=== PATIENT | female | born 1955 | race Caucasian/White ===

== ENCOUNTER → 2016-12-14 | Outpatient (CLI) | payer MEDICARE, OTHER ==
--- NOTE | 2016-12-15 11:54 | MM ---
Reason for exam: screening (asymptomatic). Last mammogram was performed 1 year and 1 month ago. Physical Findings: A clinical breast exam by your physician is recommended on an annual basis and results should be correlated with mammographic findings. MG Screening Mammo w CAD Bilateral CC and MLO view(s) were taken. Prior study comparison: November 18, 2015, bilateral MG screening mammo w CAD. June 05, 2014, bilateral MG screening mammo w CAD. The breast tissue is heterogeneously dense. This may lower the sensitivity of mammography. There is no discrete abnormality. No significant changes when compared with prior studies. ASSESSMENT: Negative, BI-RAD 1 RECOMMENDATION: Routine screening mammogram of both breasts in 1 year.
== END | disposition home or self-care (01) ==
LOC: RADMAMWWP 13:01
PROVIDERS: ATTEND Internal Medicine Geriatric Medicine
DX: Z12.31 Encounter for screening mammogram for malignant neoplasm of breast (principal); E55.9 Vitamin D deficiency, unspecified; E78.2 Mixed hyperlipidemia; F72 Severe intellectual disabilities; F41.1 Generalized anxiety disorder; K21.0 Gastro-esophageal reflux disease with esophagitis

== ENCOUNTER 2017-03-09 23:28 | Inpatient (IN) | payer MEDICARE, OTHER ==
[~2017-03-09 23:28] MED LIST: EPINEPHrine 10 ML SYRINGE (0.1 MG/ML) ONE; SODIUM BICARB 8.4% 50 ML VIAL (1 MEQ/ML) ONE
[2017-03-09] MEDS ORDERED: RX INFO: IV CONTRAST WAS GIVEN 1 EACH MISC MISCELLANE PRN (23:46)
[2017-03-09] MEDS ORDERED: SODIUM CHLORIDE 0.9% 500 ML IV STA (23:46)
[2017-03-10] MEDS ORDERED: ALBUTEROL NEBULIZED 2.5 MG/3 ML INHALATION STA (00:24)
[2017-03-10 00:51] LABS: Glucose,Whole Blood 277 mg/dL (75-99)
[2017-03-10] MEDS: PANTOPRAZOLE 40 MG/10 ML VIAL IVP STA ×2 (00:55→00:56)
[2017-03-10] MEDS ORDERED: PANTOPRAZOLE 40 MG/10 ML VIAL IVP STA (00:56)
[2017-03-10 01:17] LABS: Basophils % (A) 0 %; CH 29.1; Eosinophils # (A) 0.1 k/uL (0-0.7); Eosinophils % (A) 1 %; HCT 22.5 % (34.0-46.0); HDW 2.75; Luc # (Auto) 0.16; Luc % (Auto) 1; Lymphocytes % (A) 9 %; MCH 30.6 pg (25.0-35.0); MCHC 35.5 g/dL (31.0-37.0); Mean Platelet Volume 8.9; Monocytes # (A) 0.9 k/uL (0-1.0); Monocytes % (A) 7 %; Neutrophils # (A) 9.5 k/uL (1.3-7.7); Neutrophils % (A) 82 %; RBC 2.61 m/uL (3.80-5.40); RDW 14.1 % (11.5-15.5); WBC 11.6 k/uL (3.8-10.6); WBC (Perox) 11.05
--- NOTE | 2017-03-10 01:22 | ED ---
Nausea/Vomiting/Diarrhea HPI - General Chief complaint: Nausea/Vomiting/Diarrhea Stated complaint: NVD Time Seen by Provider: 03/09/17 23:48 Source: patient Mode of arrival: ambulatory Limitations: altered mental status (Patient is nonverbal) - History of Present Illness Initial comments: This patient is a 61-year-old woman brought from the [facility] home to be evaluated for vomiting and diarrhea. The patient is nonverbal and is not able to give any history, the caregiver states that she has been vomiting since the morning and also had a number of episodes of diarrhea. There has been some coffee- ground emesis. MD complaint: vomiting, diarrhea Onset/Timin -: days(s) Description of Vomiting: coffee grounds - Related Data Home Medications Medication Instructions Recorded Confirmed Docusate [Colace] 100 mg PO BID@0700,199904/10/14 03/10/17 Omeprazole [PriLOSEC] 20 mg PO QAM 04/10/14 03/10/17 QUEtiapine [SEROquel] 150 mg PO BID@1200,199904/10/14 03/10/17 clonazePAM [KlonoPIN] 1 mg PO TID@0700,1200,199904/10/14 03/10/17 Atorvastatin [Lipitor] 20 mg PO HS 03/09/17 03/10/17 Cholecalciferol (Vitamin D3) 2,000 unit PO QAM 03/09/17 03/10/17 [Vitamin D3] DULoxetine HCL [Cymbalta] 60 mg PO QAM 03/09/17 03/10/17 Loratadine [Claritin] 10 mg PO QAM 03/09/17 03/10/17 QUEtiapine [SEROquel] 50 mg PO QAM@0700 03/09/17 03/10/17 Allergies Allergy/AdvReac Type Severity Reaction Status Date / Time No Known Allergies Allergy Verified 03/09/17 23:40 Review of Systems ROS Statement: Those systems with pertinent positive or pertinent negative responses have been documented in the HPI. ROS Other: All systems not noted in ROS Statement are negative. Limitations: ROS unobtainable due to patients medical condition Gastrointestinal: Reports: vomiting, diarrhea, hematemesis Past Medical History Past Medical History: GERD/Reflux, Hyperlipidemia, Pneumonia Additional Past Medical History / Comment(s): degenerative disc, anemia, developmental disability OCC INCONT OF URINE AT NIGHT TIME, HIATAL HERNIA, CONSTIPATION History of Any Multi-Drug Resistant Organisms: None Reported Past Surgical History: Cholecystectomy Past Anesthesia/Blood Transfusion Reactions: No Reported Reaction Past Psychological History: No Psychological Hx Reported Smoking Status: Never smoker Past Alcohol Use History: None Reported Past Drug Use History: None Reported - Past Family History Father Family Medical History: Unable to Obtain Mother Family Medical History: Unable to Obtain General Exam Limitations: no limitations, language barrier General appearance: alert Head exam: Present: atraumatic, normocephalic Eye exam: Present: other (Conjunctival pallor) ENT exam: Present: mucous membranes moist Neck exam: Present: normal inspection, full ROM Respiratory exam: Present: rhonchi. Absent: respiratory distress, wheezes, rales, stridor, accessory muscle use, decreased breath sounds Cardiovascular Exam: Present: normal rhythm, tachycardia, systolic murmur ( Grade 1/6 systolic ejection murmur). Absent: diastolic murmur, rubs, gallop GI/Abdominal exam: Present: soft, normal bowel sounds. Absent: distended, tenderness, guarding, rebound, mass Rectal exam: Present: normal rectal tone, other (There is dark stool). Absent: bloody stool, fecal impaction, hemorrhoids, mass, tenderness Extremities exam: Present: normal inspection, normal capillary refill. Absent: pedal edema, calf tenderness Back exam: Absent: CVA tenderness (R), CVA tenderness (L) Neurological exam: Present: alert Skin exam: Present: warm, dry, intact, pallor. Absent: cyanosis, diaphoretic, erythema, petechiae, mottled Course Vital Signs 03/09/17 03/10/17 03/10/17 23:34 00:16 00:36 Temperature 97.4 F L Pulse Rate 125 H 122 H 120 H Respiratory 18 20 20 Rate Blood Pressure 93/50 123/61 120/68 O2 Sat by Pulse 94 L 95 94 L Oximetry 03/10/17 03/10/17 03/10/17 00:50 00:56 01:27 Temperature Pulse Rate 120 H 118 H Respiratory Rate Blood Pressure O2 Sat by Pulse 82 L Oximetry 03/10/17 03/10/17 03/10/17 01:40 01:41 01:50 Temperature Pulse Rate Respiratory Rate Blood Pressure O2 Sat by Pulse 85 L 87 L 90 L Oximetry 03/10/17 03/10/17 03/10/17 02:17 03:52 06:14 Temperature 98.4 F 99.4 F Pulse Rate 115 H 122 H 84 Respiratory 20 18 18 Rate Blood Pressure 107/64 98/52 84/47 O2 Sat by Pulse 91 L 85 L Oximetry 03/10/17 03/10/17 03/10/17 06:26 06:29 06:32 Temperature Pulse Rate 94 92 85 Respiratory 18 18 Rate Blood Pressure 81/43 62/38 49/30 O2 Sat by Pulse 74 L Oximetry 03/10/17 03/10/17 03/10/17 06:39 06:44 06:47 Temperature Pulse Rate 90 96 94 Respiratory 18 18 18 Rate Blood Pressure 59/29 51/33 51/33 O2 Sat by Pulse 93 L 96 Oximetry 03/10/17 03/10/17 03/10/17 06:50 06:53 06:56 Temperature Pulse Rate 92 92 94 Respiratory 18 18 18 Rate Blood Pressure 51/29 52/30 57/28 O2 Sat by Pulse 97 98 97 Oximetry 03/10/17 03/10/17 03/10/17 06:59 07:02 07:07 Temperature Pulse Rate 96 96 97 Respiratory 18 18 18 Rate Blood Pressure 55/29 57/30 56/30 O2 Sat by Pulse 97 97 Oximetry 03/10/17 07:08 Temperature Pulse Rate 97 Respiratory 18 Rate Blood Pressure 56/30 O2 Sat by Pulse 96 Oximetry Procedures - Central Line Placement Left Femoral Consent Obtained: verbal consent (From brother), emergent situation Time Out Performed: Yes Patient Placed on Monitor/Pulse Ox: Yes MD Prep: mask, gown, gloves Central Line Prep: Chlorhexidine scrub Local Anesthesia Used: Lidocaine 1% Central Line Lumen Inserted: triple Central Line Position: good blood return, all ports aspirated, flushed, capped, sutured in place with 3-0 nylon Dressing Applied: Tegaderm Patient Tolerated Procedure: no complications - Intubation Time Out Performed: Yes Sedative: Etomidate Laryngoscope: David Size: 3 Assist Device Used: fiber optic device ET Tube Size: 7.5 ET Tube Uncuffed: No Tube Placement Confirmation: visualized tube passing through cords, equal breath sounds bilaterally, no breath sounds over epigastrium, confirmation by capnometry Patient Tolerated Procedure: no complications Medical Decision Making - Medical Decision Making Patient is a 61-year-old woman presenting from [facility] home with GI bleeding. Initial workup reveals anemia and presence of layering blood in the stomach on the computed tomography scan. There is also evidence of aspiration pneumonitis on the initial computed tomography scan. I discussed the case with the patient's brother who makes her medical decisions for her and discussed options including full code versus comfort care. Patient' s brother states that he would like her to be full code. Case discussed with the lead database administrator, Dr. Glod, to inform him of this critically ill patient and In light of this, patient will be having central line placed as she has poor peripheral access, and intubation given that she already has had some aspiration and also that her pulse oximetry has been occasionally dropping to the 80s. Patient in room 20 and intubated. During intubation the patient did have further vomiting of gastric contents. Intubation accomplished under Glidescope. Central line is in place. I did attempt the right IJ approach, but was not able to pass the wire after the vein was cannulated. As this route was not successful, rather than performing multiple attempts to her switch to the left femoral. Was able to place the central line and started fluid bolus. Following placement of the central line, patient hypotensive and becoming bradycardic. ACLS protocol started. Patient received epinephrine and CPR. The patient did have ROSC. The repeat labs drawn during placement of the central line do show that her hemoglobin has further decreased to 2.5 and she has number of electrolyte abnormalities. Patient blood transfusion given. The case is also discussed with Dr. Marie who is the surgeon on-call, as well as Dr. Lauren, the retoucher photoengraving on-call. Case discussed with the admitting physician Dr. Braxton. Patient's brother updated by myself over the phone regarding her critical condition and the extremely guarded prognosis. - Lab Data Result diagrams: 03/10/17 05:40 03/10/17 05:40 Lab Results 03/09/17 03/10/17 03/10/17 Range/Units 00:58 00:48 00:58 WBC 11.6 H (3.8-10.6) k/uL RBC 2.61 L (3.80-5.40) m/uL Hgb 8.0 L (11.4-16.0) gm/dL Hct 22.5 L (34.0-46.0) % MCV 86.0 (80.0-100.0) fL MCH 30.6 (25.0-35.0) pg MCHC 35.5 (31.0-37.0) g/dL RDW 14.1 (11.5-15.5) % Plt Count 199 (150-450) k/uL Neutrophils % 82 % Neutrophils % (Manual) % Band Neutrophils % % Lymphocytes % 9 % Lymphocytes % (Manual) % Monocytes % 7 % Monocytes % (Manual) % Eosinophils % 1 % Eosinophils % (Manual) % Basophils % 0 % Metamyelocytes % % Myelocytes % % Neutrophils # 9.5 H (1.3-7.7) k/uL Neutrophils # (Manual) (1.3-7.7) k/uL Lymphocytes # 1.0 (1.0-4.8) k/uL Lymphocytes # (Manual) (1.0-4.8) k/uL Monocytes # 0.9 (0-1.0) k/uL Monocytes # (Manual) (0-1.0) k/uL Eosinophils # 0.1 (0-0.7) k/uL Eosinophils # (Manual) (0-0.7) k/uL Basophils # 0.0 (0-0.2) k/uL Nucleated RBCs (0-0) /100 WBC Manual Slide Review Toxic Granulation Hypochromasia Poikilocytosis (manual PT (9.0-12.0) sec INR (<1.1) APTT (22.0-30.0) sec Sample Site ABG pH (7.35-7.45) ABG pCO2 (35-45) mmHg ABG pO2 (83-108) mmHg ABG HCO3 (21-25) mmol/L ABG Total CO2 (19-24) mmol/L ABG O2 Saturation (94-97) % ABG Base Excess mmol/L FiO2 % Sodium (137-145) mmol/L Potassium (3.5-5.1) mmol/L Chloride (98-107) mmol/L Carbon Dioxide (22-30) mmol/L Anion Gap mmol/L BUN (7-17) mg/dL Creatinine (0.52-1.04) mg/dL Est GFR (MDRD) Af Amer (>60 ml/min/1.73 sqM) Est GFR (MDRD) Non-Af (>60 ml/min/1.73 sqM) Glucose (74-99) mg/dL POC Glucose (mg/dL) 277 H (75-99) mg/dL POC Glu Asian Studies Professor ID Poornima Martin Plasma Lactic Acid Jase (0.7-2.0) mmol/L Calcium (8.4-10.2) mg/dL Magnesium (1.6-2.3) mg/dL Total Bilirubin (0.2-1.3) mg/dL AST (14-36) U/L ALT (9-52) U/L Alkaline Phosphatase (38-126) U/L Total Creatine Kinase (30-135) U/L CK-MB (CK-2) (0.0-2.4) ng/mL CK-MB (CK-2) Rel Index Troponin I (0.000-0.034) ng/mL Total Protein (6.3-8.2) g/dL Albumin (3.5-5.0) g/dL Stool Occult Blood (Negative) Blood Type O Positive Blood Type Recheck No Antibody Screen NEGATIVE Crossmatch See Detail Spec Expiration Date 03/12/2017 - 235703/10/17 03/10/17 03/10/17 Range/Units 00:58 00:58 00:58 WBC (3.8-10.6) k/uL RBC (3.80-5.40) m/uL Hgb (11.4-16.0) gm/dL Hct (34.0-46.0) % MCV (80.0-100.0) fL MCH (25.0-35.0) pg MCHC (31.0-37.0) g/dL RDW (11.5-15.5) % Plt Count (150-450) k/uL Neutrophils % % Neutrophils % (Manual) % Band Neutrophils % % Lymphocytes % % Lymphocytes % (Manual) % Monocytes % % Monocytes % (Manual) % Eosinophils % % Eosinophils % (Manual) % Basophils % % Metamyelocytes % % Myelocytes % % Neutrophils # (1.3-7.7) k/uL Neutrophils # (Manual) (1.3-7.7) k/uL Lymphocytes # (1.0-4.8) k/uL Lymphocytes # (Manual) (1.0-4.8) k/uL Monocytes # (0-1.0) k/uL Monocytes # (Manual) (0-1.0) k/uL Eosinophils # (0-0.7) k/uL Eosinophils # (Manual) (0-0.7) k/uL Basophils # (0-0.2) k/uL Nucleated RBCs (0-0) /100 WBC Manual Slide Review Toxic Granulation Hypochromasia Poikilocytosis (manual PT (9.0-12.0) sec INR (<1.1) APTT (22.0-30.0) sec Sample Site ABG pH (7.35-7.45) ABG pCO2 (35-45) mmHg ABG pO2 (83-108) mmHg ABG HCO3 (21-25) mmol/L ABG Total CO2 (19-24) mmol/L ABG O2 Saturation (94-97) % ABG Base Excess mmol/L FiO2 % Sodium 128 L (137-145) mmol/L Potassium 3.2 L (3.5-5.1) mmol/L Chloride 98 (98-107) mmol/L Carbon Dioxide 16 L (22-30) mmol/L Anion Gap 14 mmol/L BUN 76 H (7-17) mg/dL Creatinine 0.97 (0.52-1.04) mg/dL Est GFR (MDRD) Af Amer >60 (>60 ml/min/1.73 sqM) Est GFR (MDRD) Non-Af 58 (>60 ml/min/1.73 sqM) Glucose 237 H (74-99) mg/dL POC Glucose (mg/dL) (75-99) mg/dL POC Glu Asian Studies Professor ID Plasma Lactic Acid Jase 2.7 H* (0.7-2.0) mmol/L Calcium 7.4 L (8.4-10.2) mg/dL Magnesium 1.5 L (1.6-2.3) mg/dL Total Bilirubin 0.4 (0.2-1.3) mg/dL AST 27 (14-36) U/L ALT 16 (9-52) U/L Alkaline Phosphatase 49 (38-126) U/L Total Creatine Kinase 180 H (30-135) U/L CK-MB (CK-2) 2.4 (0.0-2.4) ng/mL CK-MB (CK-2) Rel Index 1.3 Troponin I <0.012 (0.000-0.034) ng/mL Total Protein 5.4 L (6.3-8.2) g/dL Albumin 2.8 L (3.5-5.0) g/dL Stool Occult Blood (Negative) Blood Type Blood Type Recheck Antibody Screen Crossmatch Spec Expiration Date 03/10/17 03/10/17 03/10/17 Range/Units 01:20 05:40 05:40 WBC 3.0 L (3.8-10.6) k/uL RBC 0.86 L (3.80-5.40) m/uL Hgb 2.5 L* D (11.4-16.0) gm/dL Hct 8.4 L* (34.0-46.0) % MCV 98.0 D (80.0-100.0) fL MCH 29.4 (25.0-35.0) pg MCHC 30.0 L (31.0-37.0) g/dL RDW 14.1 (11.5-15.5) % Plt Count 121 L (150-450) k/uL Neutrophils % % Neutrophils % (Manual) 15.5 % Band Neutrophils % 16.5 % Lymphocytes % % Lymphocytes % (Manual) 42.5 % Monocytes % % Monocytes % (Manual) 6.0 % Eosinophils % % Eosinophils % (Manual) 0.5 % Basophils % % Metamyelocytes % 10.5 % Myelocytes % 8.5 % Neutrophils # (1.3-7.7) k/uL Neutrophils # (Manual) 1.0 L (1.3-7.7) k/uL Lymphocytes # (1.0-4.8) k/uL Lymphocytes # (Manual) 1.3 (1.0-4.8) k/uL Monocytes # (0-1.0) k/uL Monocytes # (Manual) 0.2 (0-1.0) k/uL Eosinophils # (0-0.7) k/uL Eosinophils # (Manual) 0.0 (0-0.7) k/uL Basophils # (0-0.2) k/uL Nucleated RBCs 0 (0-0) /100 WBC Manual Slide Review Performed Toxic Granulation Present Hypochromasia Marked Poikilocytosis (manual Present PT 16.3 H (9.0-12.0) sec INR 1.7 (<1.1) APTT >200.0 H* (22.0-30.0) sec Sample Site ABG pH (7.35-7.45) ABG pCO2 (35-45) mmHg ABG pO2 (83-108) mmHg ABG HCO3 (21-25) mmol/L ABG Total CO2 (19-24) mmol/L ABG O2 Saturation (94-97) % ABG Base Excess mmol/L FiO2 % Sodium (137-145) mmol/L Potassium (3.5-5.1) mmol/L Chloride (98-107) mmol/L Carbon Dioxide (22-30) mmol/L Anion Gap mmol/L BUN (7-17) mg/dL Creatinine (0.52-1.04) mg/dL Est GFR (MDRD) Af Amer (>60 ml/min/1.73 sqM) Est GFR (MDRD) Non-Af (>60 ml/min/1.73 sqM) Glucose (74-99) mg/dL POC Glucose (mg/dL) (75-99) mg/dL POC Glu Asian Studies Professor ID Plasma Lactic Acid Jase (0.7-2.0) mmol/L Calcium (8.4-10.2) mg/dL Magnesium (1.6-2.3) mg/dL Total Bilirubin (0.2-1.3) mg/dL AST (14-36) U/L ALT (9-52) U/L Alkaline Phosphatase (38-126) U/L Total Creatine Kinase (30-135) U/L CK-MB (CK-2) (0.0-2.4) ng/mL CK-MB (CK-2) Rel Index Troponin I (0.000-0.034) ng/mL Total Protein (6.3-8.2) g/dL Albumin (3.5-5.0) g/dL Stool Occult Blood Positive H (Negative) Blood Type Blood Type Recheck Antibody Screen Crossmatch Spec Expiration Date 03/10/17 03/10/17 03/10/17 Range/Units 05:40 05:40 06:21 WBC (3.8-10.6) k/uL RBC (3.80-5.40) m/uL Hgb (11.4-16.0) gm/dL Hct (34.0-46.0) % MCV (80.0-100.0) fL MCH (25.0-35.0) pg MCHC (31.0-37.0) g/dL RDW (11.5-15.5) % Plt Count (150-450) k/uL Neutrophils % % Neutrophils % (Manual) % Band Neutrophils % % Lymphocytes % % Lymphocytes % (Manual) % Monocytes % % Monocytes % (Manual) % Eosinophils % % Eosinophils % (Manual) % Basophils % % Metamyelocytes % % Myelocytes % % Neutrophils # (1.3-7.7) k/uL Neutrophils # (Manual) (1.3-7.7) k/uL Lymphocytes # (1.0-4.8) k/uL Lymphocytes # (Manual) (1.0-4.8) k/uL Monocytes # (0-1.0) k/uL Monocytes # (Manual) (0-1.0) k/uL Eosinophils # (0-0.7) k/uL Eosinophils # (Manual) (0-0.7) k/uL Basophils # (0-0.2) k/uL Nucleated RBCs (0-0) /100 WBC Manual Slide Review Toxic Granulation Hypochromasia Poikilocytosis (manual PT (9.0-12.0) sec INR (<1.1) APTT (22.0-30.0) sec Sample Site RRA ABG pH <7.00 L* (7.35-7.45) ABG pCO2 78 H* (35-45) mmHg ABG pO2 79 L (83-108) mmHg ABG HCO3 9 L* (21-25) mmol/L ABG Total CO2 12 L (19-24) mmol/L ABG O2 Saturation 73.1 L (94-97) % ABG Base Excess -23.4 mmol/L FiO2 100 % Sodium 133 L (137-145) mmol/L Potassium 2.4 L* (3.5-5.1) mmol/L Chloride 112 H (98-107) mmol/L Carbon Dioxide 8 L* (22-30) mmol/L Anion Gap 13 mmol/L BUN 50 H (7-17) mg/dL Creatinine 0.87 (0.52-1.04) mg/dL Est GFR (MDRD) Af Amer >60 (>60 ml/min/1.73 sqM) Est GFR (MDRD) Non-Af >60 (>60 ml/min/1.73 sqM) Glucose 314 H (74-99) mg/dL POC Glucose (mg/dL) (75-99) mg/dL POC Glu Asian Studies Professor ID Plasma Lactic Acid Jase 8.1 H* (0.7-2.0) mmol/L Calcium 4.5 L* (8.4-10.2) mg/dL Magnesium (1.6-2.3) mg/dL Total Bilirubin 0.1 L (0.2-1.3) mg/dL AST 16 (14-36) U/L ALT 10 (9-52) U/L Alkaline Phosphatase 24 L (38-126) U/L Total Creatine Kinase (30-135) U/L CK-MB (CK-2) (0.0-2.4) ng/mL CK-MB (CK-2) Rel Index Troponin I (0.000-0.034) ng/mL Total Protein 2.1 L (6.3-8.2) g/dL Albumin <1.0 L (3.5-5.0) g/dL Stool Occult Blood (Negative) Blood Type Blood Type Recheck Antibody Screen Crossmatch Spec Expiration Date - EKG Data -: EKG Interpreted by Ia EKG shows normal: sinus rhythm, intervals (HI and QT intervals normal, the QRS duration is 122 ms which is consistent with the right bundle-branch block.), QRS complexes (Right bundle-branch block), ST-T waves (T wave abnormalities suggestive of inferolateral ischemia.) Rate: tachycardia (Rate approximately 122 bpm) Critical Care Time Critical Care Time: Yes (90) Critical Care Time: Critical care time involved in the initial history and physical, order manager, study interpretation, multiple discussions of the patient's condition, including with her caregiver, her brother, the lead database administrator twice, the surgeon twice, the retoucher photoengraving, the admitting physician. Also time involved in ACLS protocol. time does not include the procedures performed. Disposition Clinical Impression: GI bleed, Anemia, Lactic acidosis Disposition: ADMITTED IP TO THIS [facility] Condition: Critical
[2017-03-10] MEDS ORDERED: INSULIN REGULAR 100 UNIT/ML VIAL SQ STA (01:23)
[2017-03-10] MEDS ORDERED: LEVOFLOXACIN 750MG-D5W PMX 750 MG in DEXTROSE/WATER 1 150ML.BAG IVPB STA (01:49)
[2017-03-10 01:51] LABS: ALT 16 U/L (9-52); AST 27 U/L (14-36); Alkaline Phosphatase 49 U/L (38-126); Anion Gap 14 mmol/L; Blood Urea Nitrogen 76 mg/dL (7-17); Calcium 7.4 mg/dL (8.4-10.2); Carbon Dioxide 16 mmol/L (22-30); Chloride 98 mmol/L (98-107); Creatine Kinase 180 U/L (30-135); Glucose 237 mg/dL (74-99); Magnesium 1.5 mg/dL (1.6-2.3); Non-African American GFR(MDRD) 58 (>60 ml/min/1.73 sqM); Potassium 3.2 mmol/L (3.5-5.1); Sodium 128 mmol/L (137-145); Total Bilirubin 0.4 mg/dL (0.2-1.3); Total Protein 5.4 g/dL (6.3-8.2)
[2017-03-10 02:02] LABS: Creatine Kinase MB 2.4 ng/mL (0.0-2.4); Troponin I <0.012 ng/mL (0.000-0.034)
--- NOTE | 2017-03-10 02:54 | CT ---
EXAM: CT Abdomen and Pelvis With Intravenous Contrast CLINICAL HISTORY: GI bleed, abd pain, hx of hiatal hernia, cholecystectomy hysterectomy, [id number]/100ml iv only given and 0ml wasted, TECHNIQUE: Axial computed tomography images of the abdomen and pelvis with intravenous contrast. CTDI is 13.90 mGy and DLP is 1034.1 mGy-cm. This CT exam was performed using one or more of the following dose reduction techniques: automated exposure control, adjustment of the mA and/or kV according to patient size, and/or use of iterative reconstruction technique. Coronal and sagittal reformatted images were created and reviewed. COMPARISON: CT abdomen and pelvis 05/27/11 FINDINGS: Lower thorax: Right upper lobe and bilateral lower lobe groundglass airspace opacities may be pneumonitis. Small hiatal hernia with fluid dilated mid to distal esophagus. ABDOMEN: Liver: Unremarkable. No mass. Gallbladder and bile ducts: Cholecystectomy. No ductal dilation. Pancreas: Unremarkable. No mass. No ductal dilation. Spleen: Unremarkable. No splenomegaly. Adrenals: Unremarkable. No mass. Kidneys and ureters: 1.4 cm low-density lesion left kidney, likely cyst. No hydronephrosis. Stomach and bowel: Larned distended stomach, query gastric stasis or partial outlet obstruction. Trace layering hyperdensity distal stomach, may be ingested, cannot exclude GI bleed. Fluid-filled thickened enhancing stomach, small bowel and colon may be gastroenteritis and colitis. No bowel obstruction. Floppy cecum located in the right upper abdomen. Appendix: No findings to suggest acute appendicitis. PELVIS: Bladder: Unremarkable. No mass. Reproductive: Uterus absent. 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 2 cm. ABDOMEN and PELVIS: Intraperitoneal space: No free air, free fluid, or abscess. Bones/joints: Scoliosis of the mid lumbar spine. No acute fracture. No dislocation. Soft tissues: See above. Vasculature: Unremarkable. No abdominal aortic aneurysm. Lymph nodes: Unremarkable. No enlarged lymph nodes. IMPRESSION: 1. Larned distended stomach, query gastric stasis or partial outlet obstruction. Trace layering hyperdensity distal stomach, may be ingested, cannot exclude GI bleed. Likely resulting in reflux of fluid with fluid distended esophagus. 2. Right upper lobe and bilateral lower lobe of the lungs groundglass airspace opacities may be pneumonitis. 3. Fluid-filled enhancing small bowel and colon may be gastroenteritis and colitis. No bowel obstruction. 4. 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 5. Cholecystectomy. Hysterectomy.
[2017-03-10] MEDS ORDERED: ETOMIDATE 2 MG/ML 10 ML VIAL IVP STA ×2 (04:31)
[2017-03-10] MEDS ORDERED: EPINEPHrine 1 MG/ML 1 ML AMP IV STA (05:20)
--- NOTE | 2017-03-10 05:40 | XR ---
EXAM: XR Chest, 1 View CLINICAL HISTORY: Post intubation. Central line placement TECHNIQUE: Frontal view of the chest. COMPARISON: Chest x-ray 05/31/11 FINDINGS: Lungs: Bilateral airspace opacities. Query edema or infiltrate. Pleural space: No pleural effusion or pneumothorax. Heart: Mild cardiomegaly. Mediastinum: Unremarkable. Bones/joints: Unremarkable. Tubes, lines and devices: Endotracheal tube 1.6 cm above the nitesh. Nasogastric tube tip in the stomach. Gaseous distended stomach. IMPRESSION: 1. Endotracheal tube 1.6 cm above the nitesh. 2. Nasogastric tube tip in the stomach. Gaseous distended stomach. 3. Bilateral airspace opacities. Query edema or infiltrate.
[2017-03-10 06:04] LABS: CH 27.8; CHCM 28.5; HDW 2.58; Hypochromasia Marked; Immature Gran Flag Marked; MCH 29.4 pg (25.0-35.0); Mean Platelet Volume 8.7; RDW 14.1 % (11.5-15.5); WBC (Perox) 2.61
[2017-03-10 06:11] LABS: RBC 0.86 m/uL (3.80-5.40)
[2017-03-10 06:12] LABS: ALT 10 U/L (9-52); AST 16 U/L (14-36); Alkaline Phosphatase 24 U/L (38-126); Anion Gap 13 mmol/L; Blood Urea Nitrogen 50 mg/dL (7-17); Chloride 112 mmol/L (98-107); Glucose 314 mg/dL (74-99); HCT 8.4 % (34.0-46.0); HGB 2.5 gm/dL (11.4-16.0); Non-African American GFR(MDRD) >60 (>60 ml/min/1.73 sqM); Sodium 133 mmol/L (137-145); Total Bilirubin 0.1 mg/dL (0.2-1.3); Total Protein 2.1 g/dL (6.3-8.2)
[2017-03-10 06:16] LABS: Calcium 4.5 mg/dL (8.4-10.2); Potassium 2.4 mmol/L (3.5-5.1)
[2017-03-10 06:40] LABS: INR 1.7 (<1.1); Prothrombin Time 16.3 sec (9.0-12.0)
[2017-03-10 06:51] LABS: ABG HCO3 9 mmol/L (21-25); ABG PCO2 78 mmHg (35-45); ABG PH <7.00 (7.35-7.45); ABG PO2 79 mmHg (83-108)
[2017-03-10] MEDS ORDERED: ACETAMINOPHEN SUPPOSITORY 650 MG SUPP RECTAL PRN (06:51)
[2017-03-10] MEDS ORDERED: ARTIFICIAL TEARS OINTMENT 3.5 GM TUBE BOTH EYES PRN (06:51)
[2017-03-10] MEDS ORDERED: NALOXONE 0.4 MG/ML 1 ML VIAL IV PRN (06:51)
[2017-03-10 06:52] LABS: ABG Base Excess -23.4 mmol/L; ABG Oxygen Saturation 73.1 % (94-97); ABG TCO2 12 mmol/L (19-24)
[2017-03-10] MEDS ORDERED: SODIUM CHLORIDE 0.9% 1,000 ML IV SCH (07:00)
[2017-03-10] MEDS ORDERED: NOREPINEPHRIN 16 MG-0.9%NS PMX 16 MG/250 ML ML IV SCH (07:00)
[2017-03-10 07:12] LABS: Partial Thromboplastin Time >200.0 sec (22.0-30.0)
[2017-03-10 07:27] LABS: Add Differential Manual Differential; Carbon Dioxide 8 mmol/L (22-30)
[2017-03-10] MEDS ORDERED: SODIUM CHLORIDE 0.9% 1,000 ML IV STA (07:30)
[2017-03-10 07:36] LABS: Band Neutrophils % 16.5 %; Manual Review Performed; Metamyelocytes % 10.5 %; Myelocytes % 8.5 %; Nucleated Red Blood Cells 0 /100 WBC (0-0); Total Cells Counted 200
[2017-03-10 07:40] LABS: Toxic Granulation Present
--- NOTE | 2017-03-10 07:58 | P.GSCN ---
History of Present Illness Consult date: 03/10/17 Reason for Consult: GI bleed History of present illness: The patient was brought in from a retirement with vomiting and diarrhea which started yesterday. She was worked up in the emergency department and found to be extremely anemic. She showed signs of GI bleeding and instability. She ended up being coded and intubated. NG shows coffee-ground material. She also has passed some dark bloody stools. Patient is noncommunicative at the retirement. Review of Systems Limited history from ER visit due to the patient's noncommunicative state ROS unobtainable: due to endotracheal tube Past Medical History Past Medical History: GERD/Reflux, Hyperlipidemia, Pneumonia Additional Past Medical History / Comment(s): degenerative disc, anemia, developmental disability OCC INCONT OF URINE AT NIGHT TIME, HIATAL HERNIA, CONSTIPATION History of Any Multi-Drug Resistant Organisms: None Reported Past Surgical History: Cholecystectomy Past Anesthesia/Blood Transfusion Reactions: No Reported Reaction Past Psychological History: No Psychological Hx Reported Smoking Status: Never smoker Past Alcohol Use History: None Reported Past Drug Use History: None Reported - Past Family History Father Family Medical History: Unable to Obtain Mother Family Medical History: Unable to Obtain Medications and Allergies Home Medications Medication Instructions Recorded Confirmed Type Docusate [Colace] 100 mg PO BID@0700,199904/10/14 03/10/17 History Omeprazole [PriLOSEC] 20 mg PO QAM 04/10/14 03/10/17 History QUEtiapine [SEROquel] 150 mg PO BID@1200,199904/10/14 03/10/17 History clonazePAM [KlonoPIN] 1 mg PO TID@0700,1200,199904/10/14 03/10/17 History Atorvastatin [Lipitor] 20 mg PO HS 03/09/17 03/10/17 History Cholecalciferol (Vitamin D3) 2,000 unit PO QAM 03/09/17 03/10/17 History [Vitamin D3] DULoxetine HCL [Cymbalta] 60 mg PO QAM 03/09/17 03/10/17 History Loratadine [Claritin] 10 mg PO QAM 03/09/17 03/10/17 History QUEtiapine [SEROquel] 50 mg PO QAM@0700 03/09/17 03/10/17 History Allergies Allergy/AdvReac Type Severity Reaction Status Date / Time No Known Allergies Allergy Verified 03/09/17 23:40 Surgical - Exam Osteopathic Statement: *. No significant issues noted on an osteopathic structural exam other than those noted in the History and Physical/Consult. Vital Signs Temp Pulse Resp BP Pulse Ox 97.4 F L 125 H 18 93/50 94 L 03/09/17 23:34 03/09/17 23:34 03/09/17 23:34 03/09/17 23:34 03/09/17 23:34 - General Intubated, nonresponsive, extremely pale - Neck trachea midline - Respiratory normal respiratory effort, clear to auscultation - Cardiovascular Rhythm: regular - Abdomen Abdomen: soft, no surgical scars - Rectum Rectum: other (Bleeding) Results - Labs 03/10/17 05:40 03/10/17 05:40 Abnormal Lab Results - Last 24 Hours (Table) 03/09/17 03/10/17 03/10/17 Range/Units 00:58 00:48 00:58 WBC 11.6 H (3.8-10.6) k/uL RBC 2.61 L (3.80-5.40) m/uL Hgb 8.0 L (11.4-16.0) gm/dL Hct 22.5 L (34.0-46.0) % MCHC (31.0-37.0) g/dL Plt Count (150-450) k/uL Neutrophils # 9.5 H (1.3-7.7) k/uL Neutrophils # (Manual) (1.3-7.7) k/uL PT (9.0-12.0) sec APTT (22.0-30.0) sec ABG pH (7.35-7.45) ABG pCO2 (35-45) mmHg ABG pO2 (83-108) mmHg ABG HCO3 (21-25) mmol/L ABG Total CO2 (19-24) mmol/L ABG O2 Saturation (94-97) % Sodium (137-145) mmol/L Potassium (3.5-5.1) mmol/L Chloride (98-107) mmol/L Carbon Dioxide (22-30) mmol/L BUN (7-17) mg/dL Glucose (74-99) mg/dL POC Glucose (mg/dL) 277 H (75-99) mg/dL Plasma Lactic Acid Jase (0.7-2.0) mmol/L Calcium (8.4-10.2) mg/dL Magnesium (1.6-2.3) mg/dL Total Bilirubin (0.2-1.3) mg/dL Alkaline Phosphatase (38-126) U/L Total Creatine Kinase (30-135) U/L Total Protein (6.3-8.2) g/dL Albumin (3.5-5.0) g/dL Stool Occult Blood (Negative) Crossmatch See Detail 03/10/17 03/10/17 03/10/17 Range/Units 00:58 00:58 00:58 WBC (3.8-10.6) k/uL RBC (3.80-5.40) m/uL Hgb (11.4-16.0) gm/dL Hct (34.0-46.0) % MCHC (31.0-37.0) g/dL Plt Count (150-450) k/uL Neutrophils # (1.3-7.7) k/uL Neutrophils # (Manual) (1.3-7.7) k/uL PT (9.0-12.0) sec APTT (22.0-30.0) sec ABG pH (7.35-7.45) ABG pCO2 (35-45) mmHg ABG pO2 (83-108) mmHg ABG HCO3 (21-25) mmol/L ABG Total CO2 (19-24) mmol/L ABG O2 Saturation (94-97) % Sodium 128 L (137-145) mmol/L Potassium 3.2 L (3.5-5.1) mmol/L Chloride (98-107) mmol/L Carbon Dioxide 16 L (22-30) mmol/L BUN 76 H (7-17) mg/dL Glucose 237 H (74-99) mg/dL POC Glucose (mg/dL) (75-99) mg/dL Plasma Lactic Acid Jase 2.7 H* (0.7-2.0) mmol/L Calcium 7.4 L (8.4-10.2) mg/dL Magnesium 1.5 L (1.6-2.3) mg/dL Total Bilirubin (0.2-1.3) mg/dL Alkaline Phosphatase (38-126) U/L Total Creatine Kinase 180 H (30-135) U/L Total Protein 5.4 L (6.3-8.2) g/dL Albumin 2.8 L (3.5-5.0) g/dL Stool Occult Blood (Negative) Crossmatch 03/10/17 03/10/17 03/10/17 Range/Units 01:20 05:40 05:40 WBC 3.0 L (3.8-10.6) k/uL RBC 0.86 L (3.80-5.40) m/uL Hgb 2.5 L* D (11.4-16.0) gm/dL Hct 8.4 L* (34.0-46.0) % MCHC 30.0 L (31.0-37.0) g/dL Plt Count 121 L (150-450) k/uL Neutrophils # (1.3-7.7) k/uL Neutrophils # (Manual) 1.0 L (1.3-7.7) k/uL PT 16.3 H (9.0-12.0) sec APTT >200.0 H* (22.0-30.0) sec ABG pH (7.35-7.45) ABG pCO2 (35-45) mmHg ABG pO2 (83-108) mmHg ABG HCO3 (21-25) mmol/L ABG Total CO2 (19-24) mmol/L ABG O2 Saturation (94-97) % Sodium (137-145) mmol/L Potassium (3.5-5.1) mmol/L Chloride (98-107) mmol/L Carbon Dioxide (22-30) mmol/L BUN (7-17) mg/dL Glucose (74-99) mg/dL POC Glucose (mg/dL) (75-99) mg/dL Plasma Lactic Acid Jase (0.7-2.0) mmol/L Calcium (8.4-10.2) mg/dL Magnesium (1.6-2.3) mg/dL Total Bilirubin (0.2-1.3) mg/dL Alkaline Phosphatase (38-126) U/L Total Creatine Kinase (30-135) U/L Total Protein (6.3-8.2) g/dL Albumin (3.5-5.0) g/dL Stool Occult Blood Positive H (Negative) Crossmatch 03/10/17 03/10/17 03/10/17 Range/Units 05:40 05:40 06:21 WBC (3.8-10.6) k/uL RBC (3.80-5.40) m/uL Hgb (11.4-16.0) gm/dL Hct (34.0-46.0) % MCHC (31.0-37.0) g/dL Plt Count (150-450) k/uL Neutrophils # (1.3-7.7) k/uL Neutrophils # (Manual) (1.3-7.7) k/uL PT (9.0-12.0) sec APTT (22.0-30.0) sec ABG pH <7.00 L* (7.35-7.45) ABG pCO2 78 H* (35-45) mmHg ABG pO2 79 L (83-108) mmHg ABG HCO3 9 L* (21-25) mmol/L ABG Total CO2 12 L (19-24) mmol/L ABG O2 Saturation 73.1 L (94-97) % Sodium 133 L (137-145) mmol/L Potassium 2.4 L* (3.5-5.1) mmol/L Chloride 112 H (98-107) mmol/L Carbon Dioxide 8 L* (22-30) mmol/L BUN 50 H (7-17) mg/dL Glucose 314 H (74-99) mg/dL POC Glucose (mg/dL) (75-99) mg/dL Plasma Lactic Acid Jase 8.1 H* (0.7-2.0) mmol/L Calcium 4.5 L* (8.4-10.2) mg/dL Magnesium (1.6-2.3) mg/dL Total Bilirubin 0.1 L (0.2-1.3) mg/dL Alkaline Phosphatase 24 L (38-126) U/L Total Creatine Kinase (30-135) U/L Total Protein 2.1 L (6.3-8.2) g/dL Albumin <1.0 L (3.5-5.0) g/dL Stool Occult Blood (Negative) Crossmatch Diabetes panel 03/10/17 03/10/17 Range/Units 00:58 05:40 Sodium 128 L 133 L (137-145) mmol/L Potassium 3.2 L 2.4 L* (3.5-5.1) mmol/L Chloride 98 112 H (98-107) mmol/L Carbon Dioxide 16 L 8 L* (22-30) mmol/L BUN 76 H 50 H (7-17) mg/dL Creatinine 0.97 0.87 (0.52-1.04) mg/dL Glucose 237 H 314 H (74-99) mg/dL Calcium 7.4 L 4.5 L* (8.4-10.2) mg/dL AST 27 16 (14-36) U/L ALT 16 10 (9-52) U/L Alkaline Phosphatase 49 24 L (38-126) U/L Total Protein 5.4 L 2.1 L (6.3-8.2) g/dL Albumin 2.8 L <1.0 L (3.5-5.0) g/dL Calcium panel 03/10/17 03/10/17 Range/Units 00:58 05:40 Calcium 7.4 L 4.5 L* (8.4-10.2) mg/dL Albumin 2.8 L <1.0 L (3.5-5.0) g/dL Pituitary panel 03/10/17 03/10/17 Range/Units 00:58 05:40 Sodium 128 L 133 L (137-145) mmol/L Potassium 3.2 L 2.4 L* (3.5-5.1) mmol/L Chloride 98 112 H (98-107) mmol/L Carbon Dioxide 16 L 8 L* (22-30) mmol/L BUN 76 H 50 H (7-17) mg/dL Creatinine 0.97 0.87 (0.52-1.04) mg/dL Glucose 237 H 314 H (74-99) mg/dL Calcium 7.4 L 4.5 L* (8.4-10.2) mg/dL Adrenal panel 03/10/17 03/10/17 Range/Units 00:58 05:40 Sodium 128 L 133 L (137-145) mmol/L Potassium 3.2 L 2.4 L* (3.5-5.1) mmol/L Chloride 98 112 H (98-107) mmol/L Carbon Dioxide 16 L 8 L* (22-30) mmol/L BUN 76 H 50 H (7-17) mg/dL Creatinine 0.97 0.87 (0.52-1.04) mg/dL Glucose 237 H 314 H (74-99) mg/dL Calcium 7.4 L 4.5 L* (8.4-10.2) mg/dL Total Bilirubin 0.4 0.1 L (0.2-1.3) mg/dL AST 27 16 (14-36) U/L ALT 16 10 (9-52) U/L Alkaline Phosphatase 49 24 L (38-126) U/L Total Protein 5.4 L 2.1 L (6.3-8.2) g/dL Albumin 2.8 L <1.0 L (3.5-5.0) g/dL - Imaging CT scan - abdomen: report reviewed, image reviewed Assessment and Plan (1) Acute blood loss anemia Status: Acute (2) GI bleed Status: Acute (3) Lactic acidosis Status: Acute Plan: This is likely an upper GI bleed. Transfuse to hemoglobin greater than 7. I recommended that an Jonel tube be placed to evacuate the clot from the stomach. At this point there so much clot that a EGD would likely be nondiagnostic. The computed tomography scan does not show a specific area of acute bleeding. Consider CT angioma or bleeding scan. Supportive care. Prognosis is extremely poor.
[2017-03-10] MEDS ORDERED: SODIUM CHLORIDE 0.9% 99 ML with VASOPRESSIN 20 UNIT IV SCH ×2 (09:00)
[2017-03-10 09:03] LABS: Glucose,Whole Blood 265 mg/dL (75-99)
[2017-03-10] MEDS ORDERED: DEXTROSE 5% IN WATER 1,000 ML with SODIUM BICARB (1 MEQ/ML) 150 ML IV SCH (09:30)
[2017-03-10] MEDS ORDERED: PROPOFOL 500 MG in EMPTY BAG 1 BAG IV SCH (09:30)
[2017-03-10] MEDS ORDERED: PIPERACILLIN-TAZOBACTAM 3.375 GM in DEXTROSE/WATER 1 50ML.BAG IVPB SCH (09:30)
[2017-03-10] MEDS ORDERED: CHLORHEXIDINE GLUCONATE 15 ML CUP MUCOUS MEM SCH (09:30)
[2017-03-10 09:31] LABS: ABG PH 7.09 (7.35-7.45)
[2017-03-10 09:32] LABS: ABG HCO3 13 mmol/L (21-25); ABG PCO2 45 mmHg (35-45); ABG PO2 97 mmHg (83-108); ABG TCO2 15 mmol/L (19-24)
[2017-03-10 09:33] LABS: ABG Base Excess -14.8 mmol/L
--- NOTE | 2017-03-10 09:52 | XR ---
EXAMINATION TYPE: XR chest 1V portable DATE OF EXAM: 03/10/2017 COMPARISON: 03/10/2017 INDICATION: Difficulty in breathing TECHNIQUE: Single frontal view of the chest is obtained. FINDINGS: The heart size is normal. The pulmonary vasculature is normal. There is opacity through the lower portion right upper lung field. A right lower lobe infiltrate is a lso present. Mild increased lung markings are at the left base which are slightly improved from lisa rison. An endotracheal tube is present currently residing 3.9 cm above the nitesh. Nasogastric tube transver ses the thorax tip in the left upper quadrant of the abdomen. IMPRESSION: 1. Right upper and lower lobe infiltrates worsening from prior study. 2. Improving left perihilar and left lower lobe infiltrate. 3. Lines and catheters discussed above.
[2017-03-10] MEDS ORDERED: SODIUM BICARB 8.4% 50 ML SYR (1 MEQ/ML) IV ONE (10:00)
[2017-03-10 10:21] LABS: Glucose,Whole Blood 133 mg/dL (75-99)
[2017-03-10] MEDS: INSULIN LISPRO (humaLOG) 300 UNIT/3 ML VIAL SQ SCH ×2 (10:31→12:01)
[2017-03-10 10:35] LABS: ABG HCO3 17 mmol/L (21-25); ABG PCO2 43 mmHg (35-45); ABG PH 7.22 (7.35-7.45); ABG PO2 90 mmHg (83-108); ABG TCO2 18 mmol/L (19-24)
[2017-03-10 10:36] LABS: ABG Base Excess -9.3 mmol/L
[2017-03-10 11:18] LABS: Magnesium 1.4 mg/dL (1.6-2.3); Phosphorous 3.6 mg/dL (2.5-4.5)
--- NOTE | 2017-03-10 11:44 | P.PCN ---
Date of Procedure: 03/10/17 Preoperative Diagnosis: Acute hypoxic respiratory failure and cardiac arrest, profound hypotension and upper GI bleeding Postoperative Diagnosis: Same Procedure(s) Performed: Placement of right femoral arterial line Implants: Anesthesia: none (No anesthesia was deployed.) Surgeon: Hansa Gold Estimated Blood Loss (ml): 0 Pathology: none sent Condition: critical Disposition: no change Indications for Procedure: Profound hypotension, patient needed hemodynamic monitoring. And frequent blood draws. Operative Findings: Description of Procedure: Patient was placed on a supine position, the area of the right groin was prepared in a sterile fashion and draped were applied. The right femoral artery was palpated, cannulated easily, and a guidewire was placed. A femoral cooks catheter was inserted over the guidewire, and the guidewire was removed. Good blood flow and good waveforms were noted, no evidence of any immediate complication. Blood loss was negligible.
[2017-03-10 11:45] LABS: Anisocytosis Slight; Aty Lym Flag Slight; CH 31.3; CHCM 34.5; HCT 36.7 % (34.0-46.0); HDW 3.01; MCH 32.3 pg (25.0-35.0); MCHC 35.3 g/dL (31.0-37.0); Mean Platelet Volume 8.3; RBC 4.02 m/uL (3.80-5.40); RDW 16.1 % (11.5-15.5); WBC (Perox) 2.12
[2017-03-10 11:54] LABS: Glucose,Whole Blood 104 mg/dL (75-99)
[2017-03-10 11:54] LABS: INR 1.7 (<1.1); Prothrombin Time 16.2 sec (9.0-12.0)
[2017-03-10 11:59] LABS: Magnesium 1.2 mg/dL (1.6-2.3)
[2017-03-10] MEDS ORDERED: IPRATROPIUM-ALBUTEROL 3 ML NEB INHALATION SCH (12:00)
[2017-03-10] MEDS ORDERED: methylPREDNISolone SOD SUCCI 125 MG/2 ML VIAL IV SCH (12:00)
[2017-03-10 12:01] LABS: WBC 1.9 k/uL (3.8-10.6)
[2017-03-10] MEDS ORDERED: CISATRACURIUM 2 MG/ML 5 ML VIAL IV ONE ×2 (12:01→12:21)
[2017-03-10 12:02] LABS: MCV 91.3 fL (80.0-100.0)
[2017-03-10 12:07] LABS: Calcium 5.3 mg/dL (8.4-10.2); Potassium 2.2 mmol/L (3.5-5.1)
[2017-03-10 12:13] LABS: ABG HCO3 18 mmol/L (21-25); ABG PCO2 41 mmHg (35-45); ABG PH 7.27 (7.35-7.45); ABG PO2 53 mmHg (83-108)
[2017-03-10 12:14] LABS: ABG TCO2 19 mmol/L (19-24)
--- NOTE | 2017-03-10 12:14 | P.CNPUL ---
History of Present Illness Consult date: 03/10/17 Requesting physician: Gildardo Braxton Reason for consult: other (GI bleeding, hypertension, status post cardiac arrest 2 in the ER.) Chief complaint: Nausea vomiting and diarrhea. History of present illness: This is a 61-year-old female with history of multiple medical problems, patient resides [facility] an [facility], sent to the ER with 1 day history of nausea vomiting and diarrhea. Patient had some coffee ground emesis, upon arrival to the ER, patient was noted to have low hemoglobin around 8, she was also noted to be hypoxic, and clearly was aspirating as per the ER physician. Patient was also hypotensive, hence the patient had a left femoral triple-lumen catheter placed, patient was intubated because of her profound hypoxemia, and she was placed on vasopressin. Follow-up CBC showed hemoglobin of 2.5. Apparently the patient had very poor peripheral access according to the ER physician, and clearly was aspirating, unable to protect her airways. O2 sat was dropping down to the 80s. Upon intubation, the patient was noted to vomit gastric content and intubation was accomplished viia glide scope. Attempts were made to place a central line in the right IJ, but apparently was unsuccessful according to the ER physician. Following placement of the central line, patient became more hypotensive and more bradycardic, ACLS protocol was started patient received epinephrine and CPR. At that point repeat hemoglobin was 2.5 hence blood transfusion was ordered. General surgery and gastroenterology were notified about the patient's condition while in the ER. 3 units of packed RBCs were given in the ER, patient apparently arrested again while in the ER, and ACLS protocol was started again. Eventually, the patient was transferred to the ICU on a very high dose of norepinephrine about 60 mcg/m , and upon arrival to the ICU she received the fourth unit of packed RBCs. Shortly after the patient arrived to the ICU, I saw the patient on consultation , and I placed a right femoral arterial line for hemodynamic monitoring. Reviewed her ABG which showed significant respiratory and metabolic acidosis, ventilator settings were adjusted, sodium bicarb was given, sodium bicarb drip was initiated, and more blood was ordered. Awaiting the repeat CBC which is pending at the time of this dictation. Reviewed the chest x-ray, clearly showed significant bilateral air space disease consistent mostly with a picture of aspiration pneumonia. Hence the patient was placed on antibiotics in the form of Zosyn, I adjusted the dose of norepinephrine, I was about to start vasopressin, but I was able to cut down the dose of norepinephrine to 15 g. Repeat ABG showed a pO2 of 90 0 pCO2 of 43 pH of 7.22. Repeat hemoglobin after 4 units of packed RBCs came back at 13. Hence I felt that most likely the initial hemoglobin of 2.5 was probably an error has to do with the way the blood was drawn. We will go ahead and verifying the repeat hemoglobin which was just done in the last 15 minutes. In the meantime the patient was noted to desaturate hence the PEEP was increased up to 10, and a repeat ABG will be done. Patient is on respiratory rate of 26, this is an assist control, tidal volume is 350, PEEP is 10. And FiO2 is 100%. 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 History of Any Multi-Drug Resistant Organisms: None Reported Past Surgical History: Cholecystectomy Additional Past Surgical History / Comment(s): EGDs Past Anesthesia/Blood Transfusion Reactions: No Reported Reaction Additional Past Anesthesia/Blood Transfusion Reaction / Comment(s): Pt has received blood in past without reaction. Smoking Status: Never smoker - Past Family History Father Family Medical History: Cancer Additional Family Medical History / Comment(s): Father of thyroid cancer at the age of 46yrs. Mother Family Medical History: Cancer Additional Family Medical History / Comment(s): Mother of pancreatic cancer at the age of 78yrs. Medications and Allergies Home Medications Medication Instructions Recorded Confirmed Type Docusate [Colace] 100 mg PO BID@0700,199904/10/14 03/10/17 History Omeprazole [PriLOSEC] 20 mg PO QA 04/10/14 03/10/17 History QUEtiapine [SEROquel] 150 mg PO BID@1200,199904/10/14 03/10/17 History clonazePAM [KlonoPIN] 1 mg PO TID@0700,1200,2000 04/10/14 03/10/17 History Atorvastatin [Lipitor] 20 mg PO HS 03/09/17 03/10/17 History Cholecalciferol (Vitamin D3) 2,000 unit PO QAM 03/09/17 03/10/17 History [Vitamin D3] DULoxetine HCL [Cymbalta] 60 mg PO QAM 03/09/17 03/10/17 History Loratadine [Claritin] 10 mg PO QAM 03/09/17 03/10/17 History QUEtiapine [SEROquel] 50 mg PO QAM@0700 03/09/17 03/10/17 History Allergies Allergy/AdvReac Type Severity Reaction Status Date / Time No Known Allergies Allergy Verified 03/09/17 23:40 Physical Exam Vitals: Vital Signs Temp Pulse Resp BP Pulse Ox 03/10/17 11:33 96 03/10/17 11:14 94 03/10/17 10:00 126 H 26 H 101/61 96 03/10/17 09:30 96 F L 120 H 10 L 101/61 94 L 03/10/17 09:10 128 H 24 101/61 95 03/10/17 09:00 96.1 F L 113 H 17 80/53 03/10/17 08:35 112 H 22 82/50 88 L 03/10/17 08:23 97.1 F L 111 H 24 91/50 87 L 03/10/17 08:07 97.1 F L 106 H 22 60/20 03/10/17 07:57 95.0 F L 106 H 24 68/32 03/10/17 07:44 104 H 24 84 L 03/10/17 07:30 104 H 24 64/29 80 L 03/10/17 07:08 97 18 56/30 96 03/10/17 07:07 97 18 56/30 03/10/17 07:02 96 18 57/30 97 03/10/17 06:59 96 18 55/29 97 03/10/17 06:56 94 18 57/28 97 03/10/17 06:53 92 18 52/30 98 03/10/17 06:50 92 18 51/29 97 03/10/17 06:47 94 18 51/33 96 07/05/17 06:44 96 18 51/33 93 L 03/10/17 06:39 90 18 59/29 03/10/17 06:32 85 18 49/30 74 L 03/10/17 06:29 92 18 62/38 03/10/17 06:26 94 81/43 03/10/17 06:14 84 18 84/47 03/10/17 03:52 99.4 F 122 H 18 98/52 85 L 03/10/17 02:17 98.4 F 115 H 20 107/64 91 L 03/10/17 01:50 90 L 03/10/17 01:41 87 L 03/10/17 01:40 85 L 03/10/17 01:27 82 L 03/10/17 00:56 118 H 03/10/17 00:50 120 H 03/10/17 00:36 120 H 20 120/68 94 L 03/10/17 00:16 122 H 20 123/61 95 03/09/17 23:34 97.4 F L 125 H 18 93/50 94 L Intake and Output 03/09/17 03/10/17 03/10/17 22:59 06:59 14:59 Intake Total 310 2156.988 Output Total 1051 Balance 310 1105.988 Intake: IV 1111.5 Dextrose 5% in Water 1, 100 000 ml @ 100 mls/hr IV . [id number] DIMITRIOS with Sodium Bicarb (1 Meq/ml) 150 ml Rx#:[id number] Piperacillin-Tazobactam 3 12.5 .375 gm In Dextrose/Water 1 50ml.bag @ 12.5 mls/hr IVPB Q12HR DIMITRIOS Rx#: [id number] Sodium Chloride 0.9% 1, 999 000 ml @ 999 mls/hr IV . Q1H1M STA Rx#:[id number] Intake, IV Titration 145.488 Amount Norepinephrin 16 mg-0.9% 145.290 Ns Pmx 16 mg In 250 ml @ Titrate IV .Q0M DIMITRIOS Rx#: [id number] Propofol 500 mg In Empty 0.198 Bag 1 bag @ Titrate IV . Q0M [facility] [place] Rx#:[id number] Blood Product 310 900 Ffp 24 Cpd Unit 280 [id number] Rc As-1 Unit 310 [id number] Rc As-1 Unit 0 310 [id number] Rc As-1 Unit 0 [id number] Rc As-1 Unit 310 [id number] Output: Gastric Drainage 1050 Urine 1 Uretheral (Emery) 1 Other: Weight 56.699 kg ABP, PAP, CO, CI - Last 8 Hours Arterial Blood Pressure 117/58 Arterial Blood Pressure 102/56 Arterial Blood Pressure 138/64 Physical Exam: Revealed a 61-year-old female on mechanical ventilation, unresponsive to any stimuli including painful stimuli, pupils are equal and reactive to light. HEENT:[Neck is supple.] [No neck masses.] [No thyromegaly.] [No JVD.]. Endotracheal tube is intact. Nasogastric tube was also noted to be intact. Chest: [Crackles and rhonchi noted bilaterally.] Cardiac Exam: [Tachycardic, Normal S1 and S2, no S3 gallop, no murmur.] Abdomen: [Soft, nontender, no megaly, no rebound, no guarding, diminished bowel sounds. Extremities: [No clubbing, no edema, no cyanosis.] Neurological Exam: Patient is on mechanical ventilation, unresponsive to any painful stimuli. No response to verbal stimuli. Results - Laboratory Findings CBC and BMP: 03/10/17 05:40 03/10/17 05:40 ABG ABG pH 7.22 (7.35-7.45) L 03/10/17 10:10 ABG pCO2 43 mmHg (35-45) 03/10/17 10:10 ABG pO2 90 mmHg (83-108) 03/10/17 10:10 ABG O2 Saturation 95.0 % (94-97) 03/10/17 10:10 PT/INR, D-dimer PT 16.3 sec (9.0-12.0) H 03/10/17 05:40 INR 1.7 (<1.1) 03/10/17 05:40 Abnormal lab findings: Abnormal Labs 03/09/17 03/10/17 03/10/17 00:58 00:48 00:58 WBC 11.6 H RBC 2.61 L Hgb 8.0 L Hct 22.5 L MCHC Plt Count Neutrophils # 9.5 H Neutrophils # (Manual) PT APTT ABG pH ABG pCO2 ABG pO2 ABG HCO3 ABG Total CO2 ABG O2 Saturation Sodium Potassium Chloride Carbon Dioxide BUN Glucose POC Glucose (mg/dL) 277 H Plasma Lactic Acid Jase Calcium Magnesium Total Bilirubin Alkaline Phosphatase Total Creatine Kinase Total Protein Albumin Stool Occult Blood Crossmatch See Detail 03/10/17 03/10/17 03/10/17 00:58 00:58 00:58 WBC RBC Hgb Hct MCHC Plt Count Neutrophils # Neutrophils # (Manual) PT APTT ABG pH ABG pCO2 ABG pO2 ABG HCO3 ABG Total CO2 ABG O2 Saturation Sodium 128 L Potassium 3.2 L Chloride Carbon Dioxide 16 L BUN 76 H Glucose 237 H POC Glucose (mg/dL) Plasma Lactic Acid Jase 2.7 H* Calcium 7.4 L Magnesium 1.5 L Total Bilirubin Alkaline Phosphatase Total Creatine Kinase 180 H Total Protein 5.4 L Albumin 2.8 L Stool Occult Blood Crossmatch 03/10/17 03/10/17 03/10/17 01:20 05:40 05:40 WBC 3.0 L RBC 0.86 L Hgb 2.5 L* D Hct 8.4 L* MCHC 30.0 L Plt Count 121 L Neutrophils # Neutrophils # (Manual) 1.0 L PT 16.3 H APTT >200.0 H* ABG pH ABG pCO2 ABG pO2 ABG HCO3 ABG Total CO2 ABG O2 Saturation Sodium Potassium Chloride Carbon Dioxide BUN Glucose POC Glucose (mg/dL) Plasma Lactic Acid Jase Calcium Magnesium Total Bilirubin Alkaline Phosphatase Total Creatine Kinase Total Protein Albumin Stool Occult Blood Positive H Crossmatch 03/10/17 03/10/17 03/10/17 05:40 05:40 06:21 WBC RBC Hgb Hct MCHC Plt Count Neutrophils # Neutrophils # (Manual) PT APTT ABG pH <7.00 L* ABG pCO2 78 H* ABG pO2 79 L ABG HCO3 9 L* ABG Total CO2 12 L ABG O2 Saturation 73.1 L Sodium 133 L Potassium 2.4 L* Chloride 112 H Carbon Dioxide 8 L* BUN 50 H Glucose 314 H POC Glucose (mg/dL) Plasma Lactic Acid Jase 8.1 H* Calcium 4.5 L* Magnesium 1.4 L Total Bilirubin 0.1 L Alkaline Phosphatase 24 L Total Creatine Kinase Total Protein 2.1 L Albumin <1.0 L Stool Occult Blood Crossmatch 03/10/17 03/10/1717 08:59 09:15 10:10 WBC RBC Hgb Hct MCHC Plt Count Neutrophils # Neutrophils # (Manual) PT APTT ABG pH 7.09 L* 7.22 L ABG pCO2 ABG pO2 ABG HCO3 13 L 17 L ABG Total CO2 15 L 18 L ABG O2 Saturation Sodium Potassium Chloride Carbon Dioxide BUN Glucose POC Glucose (mg/dL) 265 H Plasma Lactic Acid Jase Calcium Magnesium Total Bilirubin Alkaline Phosphatase Total Creatine Kinase Total Protein Albumin Stool Occult Blood Crossmatch 03/10/17 10:18 WBC RBC Hgb Hct MCHC Plt Count Neutrophils # Neutrophils # (Manual) PT APTT ABG pH ABG pCO2 ABG pO2 ABG HCO3 ABG Total CO2 ABG O2 Saturation Sodium Potassium Chloride Carbon Dioxide BUN Glucose POC Glucose (mg/dL) 133 H Plasma Lactic Acid Jase Calcium Magnesium Total Bilirubin Alkaline Phosphatase Total Creatine Kinase Total Protein Albumin Stool Occult Blood Crossmatch - Diagnostic Findings Chest x-ray: image reviewed (Chest x-ray is mostly consistent with aspiration pneumonia.) Assessment and Plan Plan: Impression: 1 acute hypoxic respiratory failure secondary to aspiration pneumonia and upper GI bleeding, could be secondary to severe gastritis or gastric ulcer disease. 2 acute aspiration pneumonia 3 acute upper GI bleeding 4 acute kidney injury and oliguric renal failure secondary to acute tubular necrosis secondary to hypotension. 5 profound anemia secondary to upper GI bleeding 6 history of multiple comorbidities including degenerative disc disease, developmental disability, history of sliding hiatal hernia and history of gastritis, history of hyperlipidemia. 7 status post cardiopulmonary arrest requiring CPR as per ACLS protocol 2 in the ER. Hence the possibility of anoxic brain injury is also in the differential. Recommendation: Patient will be kept on mechanical ventilation, continue to adjust ventilator settings accordingly, presently on FiO2 of 100%, PEEP of 10, assist control rate of 26, tidal volume of 350. Patient will remain on antibiotics in the form of Zosyn, continue blood products as necessary, keep hemoglobin above 7. Fresh frozen plasma was given earlier by the ER physician for elevated INR. Continue pressor support for hypotension, continue Protonix 40 mg IV push every 12 hours, continue DVT prophylaxis, Venodyne boots. Continue steroids and bronchodilators, if the patient continues to have marginal oxygenation may have to use Nimbex/muscle paralysis. Prognosis is definitely poor and guarded, we'll continue to follow. Apparently the patient' s CODE STATUS was brought up by the ER physician and ER staff, and the patient is presently full code. Prognosis is definitely extremely poor. We'll continue to follow. Critical care time is 1 hour excluding time spent on procedures. Time with Patient: Greater than 30
--- NOTE | 2017-03-10 12:20 | XR ---
EXAMINATION TYPE: XR chest 1V portable DATE OF EXAM: 03/10/2017 COMPARISON: NONE INDICATION: Previous abnormal chest TECHNIQUE: Single frontal view of the chest is obtained. FINDINGS: The heart size is normal. The pulmonary vasculature is indistinct. There are increasing lung opacities right upper right lower and left lower lung lewis. This is worse riky from examination earlier in the same date. Correlate for pneumonia. Correlate for pulmonary alana a. Consider developing ARDS. A nasogastric tube transverses the thorax the tip in left upper quadrant of the abdomen. The endotrac heal tube has its tip 2.4 cm above the nitesh IMPRESSION: 1. Significantly worsening bilateral lung opacities. Consider ARDS. Differential could include pneumo saurabh and pulmonary edema.
[2017-03-10] MEDS ORDERED: FUROSEMIDE 10 MG/ML 4 ML VIAL ONE (12:23)
[2017-03-10] MEDS ORDERED: FUROSEMIDE 10 MG/ML 10 ML VIAL IV STA (12:24)
[2017-03-10 12:29] LABS: CH 31.2; CHCM 34.3; HCT 37.8 % (34.0-46.0); HDW 3.03; HGB 13.4 gm/dL (11.4-16.0); MCH 32.4 pg (25.0-35.0); MCHC 35.4 g/dL (31.0-37.0); MCV 91.7 fL (80.0-100.0); Mean Platelet Volume 9.2; RBC 4.12 m/uL (3.80-5.40)
[2017-03-10] MEDS ORDERED: Potassium Replacement Protocol 1 EACH MISC MISCELLANE PRN (12:33)
[2017-03-10] MEDS ORDERED: Magnesium Replacement Protocol 1 EACH MISC MISCELLANE PRN (12:35)
[2017-03-10 12:40] LABS: Add Differential Manual Differential
[2017-03-10 12:45] LABS: Manual Review Performed; Nucleated Red Blood Cells 0 /100 WBC (0-0); Total Cells Counted 100
[2017-03-10 12:46] LABS: Toxic Granulation Present
[2017-03-10] MEDS ORDERED: POTASSIUM CHLORIDE 20 MEQ in WATER FOR INJECTION 1 100ML.BAG IVPB ONE (13:00)
[2017-03-10] MEDS ORDERED: CISATRACURIUM 200 MG in SODIUM CHLORIDE 0.9% 180 ML IV SCH (13:00)
[2017-03-10] MEDS: MAGNESIUM SULFATE-D5W PMX 1 GM in DEXTROSE/WATER 1 100ML.BAG IVPB SCH ×2 (13:25→14:43)
[2017-03-10 13:38] LABS: ABG PH 7.23 (7.35-7.45)
[2017-03-10 13:39] LABS: ABG HCO3 19 mmol/L (21-25); ABG PCO2 46 mmHg (35-45); ABG PO2 45 mmHg (83-108); ABG TCO2 20 mmol/L (19-24)
[2017-03-10] MEDS ORDERED: HYDROCORTISONE SUCCINATE 100 MG/2 ML VIAL IV STA (13:40)
--- NOTE | 2017-03-10 14:23 | P.PN ---
Progress Note - Text Patient was reevaluated again this afternoon, and her brother who is also her legal guardian is at bedside. Patient is still on 100% FiO2, higher PEEP was not making her any better, her pO2 was only 45 and 100% FiO2 and PEEP of 14. Hence I lowered the PEEP down to 8, O2 saturation was noted to increase only from 74% to 78% at best. Chest x-ray continues to show significant white single both lungs, consistent with significant lung injury, ARDS. Tidal volume is at 300, assist control rate is at 36, and PEEP was lowered back down to 8. Patient remains anuric, no urine output whatsoever was noted. Discussed the patient's condition with her brother at bedside, and explained to him that we are dealing with a very poor prognostic situation, basically futile. Given different options of possibly continue present treatment plan, and not to do CPR if the patient develops cardiac arrest, also given the option of terminal weaning and comfort care measures considering her overall poor prognostic situation. Not to mention that the patient may have sustained significant anoxic brain injury since she coded for about at least to 20 minutes in the ER. Brother was also given the option of extreme heroic measures and continued to do what we are doing and CPR if necessary. When presented with the overall picture, her brother decided to go with comfort care measures and terminal weaning. He felt that the patient suffered all her life and now it is time to let her rest in peace comfort and dignity. Wishes will be respected, and we will proceed with stopping norepinephrine, stopping Nimbex, placed on morphine drip, and we will proceed with terminal weaning and comfort care measures.
[2017-03-10 14:26] VITALS: BP 112/56; TEMP 97
[2017-03-10] MEDS ORDERED: MORPHINE SULFATE 4 MG/ML SYRINGE IVP ONE (14:45)
[2017-03-10] MEDS ORDERED: MORPHINE SULFATE (100 MG/2 ML) 100 MG in SODIUM CHLORIDE 0.9% 100 ML IV SCH (14:45)
--- NOTE | 2017-03-10 14:46 | P.HPIM ---
History of Present Illness H&P Date: 03/10/17 Chief Complaint: Vomiting and diarrhea This is a 61-year-old patient who is a [facility]. Patient's currently in the ICU intubated. Patient's brother's legal guardian. Patient has the mental age of 2-year-old. Patient is able to ambulate to the bathroom. Occasionally incontinent of urine at night. Needs soft diet due to no dentition. Patient baseline is nonverbal with exception of grunting and agitated easily. Patient presented to the ER with at least 24 hours of nausea vomiting diarrhea. Patient was also reported to have coffee-ground emesis. Patient in the ER was noted to have aspiration pneumonia central line was placed and patient did have hypotension and severe bradycardia had to be intubated. Patient is given fluid boluses. Patient did get epinephrine and CPR. Hemoglobin in the ER was noted to be 2.5 patient did get a total of 4 units of blood. From the ER Dr. Marie the on-call surgeon was contacted so was Dr. Street from gastroenterology and Dr. Bui from critical care was contacted. Patient's currently is on levo fed up with 35 mics. Intubated with FiO2 100% and a PEEP of 14. Patient is making minimal urine. Blood pressure is holding around 90 systolic and heart rate is around 1 teens. Patient is also IV propofol, IV Zosyn IV Solu-Medrol and also given a fluid bolus and IV Nimbex. No family is at the bedside. History is obtained through the ER notes and in nurse. Past medical history: Different developmental delay age of 2-year-old, hiatal hernia, DJD, urinary incontinence, Review of Systems Review of systems cannot be done as patient is intubated Past Medical History Past Medical History: GERD/Reflux, GI Bleed, Hyperlipidemia, Pneumonia Additional Past Medical History / Comment(s): Developmentally delayed, mentally challenged-mental capablilities of a 2 yr old, nonverbal except for grunting, anxiety with unfamiliar places and crowds, upper GI bleeds, gastric polyp, hiatal hernia, constipation, DDD, occasionally incontinent of urine at night, unsteady gait (one leg is shorter). History of Any Multi-Drug Resistant Organisms: None Reported Past Surgical History: Cholecystectomy Additional Past Surgical History / Comment(s): EGDs Past Anesthesia/Blood Transfusion Reactions: No Reported Reaction Additional Past Anesthesia/Blood Transfusion Reaction / Comment(s): Pt has received blood in past without reaction. Smoking Status: Never smoker Additional Past Alcohol Use History / Comment(s): Lives [facility]. Patient's brother is the legal guardian. - Past Family History Father Family Medical History: Cancer Additional Family Medical History / Comment(s): Father of thyroid cancer at the age of 46yrs. Mother Family Medical History: Cancer Additional Family Medical History / Comment(s): Mother of pancreatic cancer at the age of 78yrs. Medications and Allergies Home Medications Medication Instructions Recorded Confirmed Type Docusate [Colace] 100 mg PO BID@0700,199904/10/14 03/10/17 History Omeprazole [PriLOSEC] 20 mg PO QAM 04/10/14 03/10/17 History QUEtiapine [SEROquel] 150 mg PO BID@1200,199904/10/14 03/10/17 History clonazePAM [KlonoPIN] 1 mg PO TID@0700,1200,199904/10/14 03/10/17 History Atorvastatin [Lipitor] 20 mg PO HS 03/09/17 03/10/17 History Cholecalciferol (Vitamin D3) 2,000 unit PO QAM 03/09/17 03/10/17 History [Vitamin D3] DULoxetine HCL [Cymbalta] 60 mg PO QAM 03/09/17 03/10/17 History Loratadine [Claritin] 10 mg PO QAM 03/09/17 03/10/17 History QUEtiapine [SEROquel] 50 mg PO QAM@0700 03/09/17 03/10/17 History Allergies Allergy/AdvReac Type Severity Reaction Status Date / Time No Known Allergies Allergy Verified 03/09/17 23:40 Physical Exam Vitals: Vital Signs Temp Pulse Resp BP Pulse Ox 03/10/17 13:30 115 H 10 L 69 L 03/10/17 13:00 110 H 33 H 65 L 03/10/17 12:30 113 H 34 H 72 L 03/10/17 12:00 101 H 0 L 81 L 03/10/17 11:40 96 6 L 88 L 03/10/17 11:33 96 03/10/17 11:30 95 25 H 93 L 03/10/17 11:14 94 03/10/17 11:00 97 26 H 101/61 94 L 03/10/17 10:00 126 H 26 H 101/61 96 03/10/17 09:30 96 F L 120 H 10 L 101/61 94 L 03/10/17 09:10 128 H 24 101/61 95 03/10/17 09:00 96.1 F L 113 H 17 80/53 03/10/17 08:35 112 H 22 82/50 88 L 03/10/17 08:23 97.1 F L 111 H 24 91/50 87 L 03/10/17 08:07 97.1 F L 106 H 22 60/20 03/10/17 07:57 95.0 F L 106 H 24 68/32 03/10/17 07:44 104 H 24 84 L 03/10/17 07:30 104 H 24 64/29 80 L 03/10/17 07:08 97 18 56/30 96 03/10/17 07:07 97 18 56/30 03/10/17 07:02 96 18 57/30 97 03/10/17 06:59 96 18 55/29 97 03/10/17 06:56 94 18 57/28 97 03/10/17 06:53 92 18 52/30 98 03/10/17 06:50 92 18 51/29 97 03/10/17 06:47 94 18 51/33 96 03/10/17 06:44 96 18 51/33 93 L 03/10/17 06:39 90 18 59/29 03/10/17 06:32 85 18 49/30 74 L 03/10/17 06:29 92 18 62/38 03/10/17 06:26 94 81/43 03/10/17 06:14 84 18 84/47 03/10/17 03:52 99.4 F 122 H 18 98/52 85 L 03/10/17 02:17 98.4 F 115 H 20 107/64 91 L 03/10/17 01:50 90 L 03/10/17 01:41 87 L 03/10/17 01:40 85 L 03/10/17 01:27 82 L 03/10/17 00:56 118 H 03/10/17 00:50 120 H 03/10/17 00:36 120 H 20 120/68 94 L 03/10/17 00:16 122 H 20 123/61 95 03/09/17 23:34 97.4 F L 125 H 18 93/50 94 L Intake and Output 03/09/17 03/10/17 03/10/17 22:59 06:59 14:59 Intake Total 310 2269.488 Output Total 1051 Balance 310 1218.488 Intake: IV 1224.0 Dextrose 5% in Water 1, 200 000 ml @ 100 mls/hr IV . [id number] [facility] with Sodium Bicarb (1 Meq/ml) 150 ml Rx#:[id number] Piperacillin-Tazobactam 3 25.0 .375 gm In Dextrose/Water 1 50ml.bag @ 12.5 mls/hr IVPB Q12HR [facility] Rx#: [id number] Sodium Chloride 0.9% 1, 999 000 ml @ 999 mls/hr IV . Q1H1M [facility] Rx#:[id number] Intake, IV Titration 145.488 Amount Norepinephrin 16 mg-0.9% 145.290 Ns Pmx 16 mg In 250 ml @ Titrate IV .Q0M [facility] Rx#: [id number] Propofol 500 mg In Empty 0.198 Bag 1 bag @ Titrate IV . Q0M [facility] Rx#:[id number] Blood Product 310 900 Ffp 24 Cpd Unit 280 [id number] Rc As-1 Unit 310 [id number] Rc As-1 Unit 0 310 [id number] Rc As-1 Unit 0 [id number] Rc As-1 Unit 310 [id number] Output: Gastric Drainage 1050 Urine 1 Uretheral ([place]) 1 Other: Weight 56.699 kg ABP, PAP, CO, CI - Last 8 Hours Arterial Blood Pressure 94/45 Arterial Blood Pressure 109/50 Arterial Blood Pressure 97/51 Arterial Blood Pressure 112/64 Arterial Blood Pressure 98/51 Arterial Blood Pressure 117/58 Arterial Blood Pressure 102/56 Arterial Blood Pressure 138/64 GENERAL: Average built, laying in bed, intubated. EYES: Pupils equal. Conjunctiva normal. HEENT: External appearance of nose and ears normal, endotracheal tube in place, NG tube in place. NECK: JVD unable to assess; masses not palpable. HEART: First and second heart sounds are normal; no edema. LUNGS: Respiratory rate normal; decreased breath sounds. ABDOMEN: Soft, nontender, distended, liver spleen not palpable, no masses palpable. LYMPHATICS: No lymph nodes palpable in the axilla and neck. PSYCH: Unable to assess intubatedl. NEUROLOGICAL: Pupils equal and reactive, no facial asymmetry, plantars downgoing. Results CBC & Chem 7: 03/10/17 12:22 03/10/17 11:32 Labs: Abnormal Lab Results - Last 24 Hours (Table) 03/09/17 03/10/17 03/10/17 Range/Units 00:58 00:48 00:58 WBC 11.6 H (3.8-10.6) k/uL RBC 2.61 L (3.80-5.40) m/uL Hgb 8.0 L (11.4-16.0) gm/dL Hct 22.5 L (34.0-46.0) % MCHC (31.0-37.0) g/dL RDW (11.5-15.5) % Plt Count (150-450) k/uL Neutrophils # 9.5 H (1.3-7.7) k/uL Neutrophils # (Manual) (1.3-7.7) k/uL PT (9.0-12.0) sec APTT (22.0-30.0) sec ABG pH (7.35-7.45) ABG pCO2 (35-45) mmHg ABG pO2 (83-108) mmHg ABG HCO3 (21-25) mmol/L ABG Total CO2 (19-24) mmol/L ABG O2 Saturation (94-97) % ABG Lactic Acid (0.5-1.6) mmol/L Sodium (137-145) mmol/L Potassium (3.5-5.1) mmol/L Chloride (98-107) mmol/L Carbon Dioxide (22-30) mmol/L BUN (7-17) mg/dL Creatinine (0.52-1.04) mg/dL Glucose (74-99) mg/dL POC Glucose (mg/dL) 277 H (75-99) mg/dL Plasma Lactic Acid Jase (0.7-2.0) mmol/L Calcium (8.4-10.2) mg/dL Magnesium (1.6-2.3) mg/dL Total Bilirubin (0.2-1.3) mg/dL Alkaline Phosphatase (38-126) U/L Total Creatine Kinase (30-135) U/L Total Protein (6.3-8.2) g/dL Albumin (3.5-5.0) g/dL Stool Occult Blood (Negative) Crossmatch See Detail 03/10/17 03/10/17 03/10/17 Range/Units 00:58 00:58 00:58 WBC (3.8-10.6) k/uL RBC (3.80-5.40) m/uL Hgb (11.4-16.0) gm/dL Hct (34.0-46.0) % MCHC (31.0-37.0) g/dL RDW (11.5-15.5) % Plt Count (150-450) k/uL Neutrophils # (1.3-7.7) k/uL Neutrophils # (Manual) (1.3-7.7) k/uL PT (9.0-12.0) sec APTT (22.0-30.0) sec ABG pH (7.35-7.45) ABG pCO2 (35-45) mmHg ABG pO2 (83-108) mmHg ABG HCO3 (21-25) mmol/L ABG Total CO2 (19-24) mmol/L ABG O2 Saturation (94-97) % ABG Lactic Acid (0.5-1.6) mmol/L Sodium 128 L (137-145) mmol/L Potassium 3.2 L (3.5-5.1) mmol/L Chloride (98-107) mmol/L Carbon Dioxide 16 L (22-30) mmol/L BUN 76 H (7-17) mg/dL Creatinine (0.52-1.04) mg/dL Glucose 237 H (74-99) mg/dL POC Glucose (mg/dL) (75-99) mg/dL Plasma Lactic Acid Jase 2.7 H* (0.7-2.0) mmol/L Calcium 7.4 L (8.4-10.2) mg/dL Magnesium 1.5 L (1.6-2.3) mg/dL Total Bilirubin (0.2-1.3) mg/dL Alkaline Phosphatase (38-126) U/L Total Creatine Kinase 180 H (30-135) U/L Total Protein 5.4 L (6.3-8.2) g/dL Albumin 2.8 L (3.5-5.0) g/dL Stool Occult Blood (Negative) Crossmatch 03/10/17 03/10/17 03/10/17 Range/Units 01:20 05:40 05:40 WBC 3.0 L (3.8-10.6) k/uL RBC 0.86 L (3.80-5.40) m/uL Hgb 2.5 L* D (11.4-16.0) gm/dL Hct 8.4 L* (34.0-46.0) % MCHC 30.0 L (31.0-37.0) g/dL RDW (11.5-15.5) % Plt Count 121 L (150-450) k/uL Neutrophils # (1.3-7.7) k/uL Neutrophils # (Manual) 1.0 L (1.3-7.7) k/uL PT 16.3 H (9.0-12.0) sec APTT >200.0 H* (22.0-30.0) sec ABG pH (7.35-7.45) ABG pCO2 (35-45) mmHg ABG pO2 (83-108) mmHg ABG HCO3 (21-25) mmol/L ABG Total CO2 (19-24) mmol/L ABG O2 Saturation (94-97) % ABG Lactic Acid (0.5-1.6) mmol/L Sodium (137-145) mmol/L Potassium (3.5-5.1) mmol/L Chloride (98-107) mmol/L Carbon Dioxide (22-30) mmol/L BUN (7-17) mg/dL Creatinine (0.52-1.04) mg/dL Glucose (74-99) mg/dL POC Glucose (mg/dL) (75-99) mg/dL Plasma Lactic Acid Jase (0.7-2.0) mmol/L Calcium (8.4-10.2) mg/dL Magnesium (1.6-2.3) mg/dL Total Bilirubin (0.2-1.3) mg/dL Alkaline Phosphatase (38-126) U/L Total Creatine Kinase (30-135) U/L Total Protein (6.3-8.2) g/dL Albumin (3.5-5.0) g/dL Stool Occult Blood Positive H (Negative) Crossmatch 03/10/17 03/10/17 03/10/17 Range/Units 05:40 05:40 06:21 WBC (3.8-10.6) k/uL RBC (3.80-5.40) m/uL Hgb (11.4-16.0) gm/dL Hct (34.0-46.0) % MCHC (31.0-37.0) g/dL RDW (11.5-15.5) % Plt Count (150-450) k/uL Neutrophils # (1.3-7.7) k/uL Neutrophils # (Manual) (1.3-7.7) k/uL PT (9.0-12.0) sec APTT (22.0-30.0) sec ABG pH <7.00 L* (7.35-7.45) ABG pCO2 78 H* (35-45) mmHg ABG pO2 79 L (83-108) mmHg ABG HCO3 9 L* (21-25) mmol/L ABG Total CO2 12 L (19-24) mmol/L ABG O2 Saturation 73.1 L (94-97) % ABG Lactic Acid (0.5-1.6) mmol/L Sodium 133 L (137-145) mmol/L Potassium 2.4 L* (3.5-5.1) mmol/L Chloride 112 H (98-107) mmol/L Carbon Dioxide 8 L* (22-30) mmol/L BUN 50 H (7-17) mg/dL Creatinine (0.52-1.04) mg/dL Glucose 314 H (74-99) mg/dL POC Glucose (mg/dL) (75-99) mg/dL Plasma Lactic Acid Jase 8.1 H* (0.7-2.0) mmol/L Calcium 4.5 L* (8.4-10.2) mg/dL Magnesium 1.4 L (1.6-2.3) mg/dL Total Bilirubin 0.1 L (0.2-1.3) mg/dL Alkaline Phosphatase 24 L (38-126) U/L Total Creatine Kinase (30-135) U/L Total Protein 2.1 L (6.3-8.2) g/dL Albumin <1.0 L (3.5-5.0) g/dL Stool Occult Blood (Negative) Crossmatch 03/10/17 03/10/17 03/10/17 Range/Units 08:59 09:15 10:10 WBC (3.8-10.6) k/uL RBC (3.80-5.40) m/uL Hgb (11.4-16.0) gm/dL Hct (34.0-46.0) % MCHC (31.0-37.0) g/dL RDW (11.5-15.5) % Plt Count (150-450) k/uL Neutrophils # (1.3-7.7) k/uL Neutrophils # (Manual) (1.3-7.7) k/uL PT (9.0-12.0) sec APTT (22.0-30.0) sec ABG pH 7.09 L* 7.22 L (7.35-7.45) ABG pCO2 (35-45) mmHg ABG pO2 (83-108) mmHg ABG HCO3 13 L 17 L (21-25) mmol/L ABG Total CO2 15 L 18 L (19-24) mmol/L ABG O2 Saturation (94-97) % ABG Lactic Acid (0.5-1.6) mmol/L Sodium (137-145) mmol/L Potassium (3.5-5.1) mmol/L Chloride (98-107) mmol/L Carbon Dioxide (22-30) mmol/L BUN (7-17) mg/dL Creatinine (0.52-1.04) mg/dL Glucose (74-99) mg/dL POC Glucose (mg/dL) 265 H (75-99) mg/dL Plasma Lactic Acid Jase (0.7-2.0) mmol/L Calcium (8.4-10.2) mg/dL Magnesium (1.6-2.3) mg/dL Total Bilirubin (0.2-1.3) mg/dL Alkaline Phosphatase (38-126) U/L Total Creatine Kinase (30-135) U/L Total Protein (6.3-8.2) g/dL Albumin (3.5-5.0) g/dL Stool Occult Blood (Negative) Crossmatch 03/10/17 03/10/17 03/10/17 Range/Units 10:18 11:32 11:32 WBC 1.9 L* (3.8-10.6) k/uL RBC (3.80-5.40) m/uL Hgb (11.4-16.0) gm/dL Hct (34.0-46.0) % MCHC (31.0-37.0) g/dL RDW 16.1 H (11.5-15.5) % Plt Count 54 L D (150-450) k/uL Neutrophils # (1.3-7.7) k/uL Neutrophils # (Manual) 0.7 L (1.3-7.7) k/uL PT (9.0-12.0) sec APTT (22.0-30.0) sec ABG pH (7.35-7.45) ABG pCO2 (35-45) mmHg ABG pO2 (83-108) mmHg ABG HCO3 (21-25) mmol/L ABG Total CO2 (19-24) mmol/L ABG O2 Saturation (94-97) % ABG Lactic Acid (0.5-1.6) mmol/L Sodium (137-145) mmol/L Potassium 2.2 L* (3.5-5.1) mmol/L Chloride 108 H (98-107) mmol/L Carbon Dioxide 18 L (22-30) mmol/L BUN 71 H (7-17) mg/dL Creatinine 1.34 H (0.52-1.04) mg/dL Glucose 125 H (74-99) mg/dL POC Glucose (mg/dL) 133 H (75-99) mg/dL Plasma Lactic Acid Jase (0.7-2.0) mmol/L Calcium 5.3 L* (8.4-10.2) mg/dL Magnesium 1.2 L (1.6-2.3) mg/dL Total Bilirubin (0.2-1.3) mg/dL Alkaline Phosphatase (38-126) U/L Total Creatine Kinase (30-135) U/L Total Protein (6.3-8.2) g/dL Albumin (3.5-5.0) g/dL Stool Occult Blood (Negative) Crossmatch 03/10/17 03/10/17 03/10/17 Range/Units 11:32 11:32 11:52 WBC (3.8-10.6) k/uL RBC (3.80-5.40) m/uL Hgb (11.4-16.0) gm/dL Hct (34.0-46.0) % MCHC (31.0-37.0) g/dL RDW (11.5-15.5) % Plt Count (150-450) k/uL Neutrophils # (1.3-7.7) k/uL Neutrophils # (Manual) (1.3-7.7) k/uL PT 16.2 H (9.0-12.0) sec APTT (22.0-30.0) sec ABG pH (7.35-7.45) ABG pCO2 (35-45) mmHg ABG pO2 (83-108) mmHg ABG HCO3 (21-25) mmol/L ABG Total CO2 (19-24) mmol/L ABG O2 Saturation (94-97) % ABG Lactic Acid 6.2 H* (0.5-1.6) mmol/L Sodium (137-145) mmol/L Potassium (3.5-5.1) mmol/L Chloride (98-107) mmol/L Carbon Dioxide (22-30) mmol/L BUN (7-17) mg/dL Creatinine (0.52-1.04) mg/dL Glucose (74-99) mg/dL POC Glucose (mg/dL) 104 H (75-99) mg/dL Plasma Lactic Acid Jase (0.7-2.0) mmol/L Calcium (8.4-10.2) mg/dL Magnesium (1.6-2.3) mg/dL Total Bilirubin (0.2-1.3) mg/dL Alkaline Phosphatase (38-126) U/L Total Creatine Kinase (30-135) U/L Total Protein (6.3-8.2) g/dL Albumin (3.5-5.0) g/dL Stool Occult Blood (Negative) Crossmatch 03/10/17 03/10/17 03/10/17 Range/Units 12:05 12:22 13:25 WBC 2.0 L* (3.8-10.6) k/uL RBC (3.80-5.40) m/uL Hgb (11.4-16.0) gm/dL Hct (34.0-46.0) % MCHC (31.0-37.0) g/dL RDW 16.0 H (11.5-15.5) % Plt Count 51 L (150-450) k/uL Neutrophils # (1.3-7.7) k/uL Neutrophils # (Manual) (1.3-7.7) k/uL PT (9.0-12.0) sec APTT (22.0-30.0) sec ABG pH 7.27 L 7.23 L (7.35-7.45) ABG pCO2 46 H (35-45) mmHg ABG pO2 53 L 45 L* (83-108) mmHg ABG HCO3 18 L 19 L (21-25) mmol/L ABG Total CO2 (19-24) mmol/L ABG O2 Saturation 82.0 L 72.0 L (94-97) % ABG Lactic Acid (0.5-1.6) mmol/L Sodium (137-145) mmol/L Potassium (3.5-5.1) mmol/L Chloride (98-107) mmol/L Carbon Dioxide (22-30) mmol/L BUN (7-17) mg/dL Creatinine (0.52-1.04) mg/dL Glucose (74-99) mg/dL POC Glucose (mg/dL) (75-99) mg/dL Plasma Lactic Acid Jase (0.7-2.0) mmol/L Calcium (8.4-10.2) mg/dL Magnesium (1.6-2.3) mg/dL Total Bilirubin (0.2-1.3) mg/dL Alkaline Phosphatase (38-126) U/L Total Creatine Kinase (30-135) U/L Total Protein (6.3-8.2) g/dL Albumin (3.5-5.0) g/dL Stool Occult Blood (Negative) Crossmatch Assessment and Plan Plan: Assessment: -Acute hypoxic respiratory failure from aspiration pneumonitis probably chemical from gastric contents, requiring intubation and ventilator assistance -Acute severe aspiration pneumonitis bilateral -chronic developmental delay mental age of 2 -Hiatal hernia -Primary Osteoarthritis multiple joints -Severe hypokalemia from diarrhea -acute gastroenteritis leading to acute GI bleed present on admission -Acute severe metabolic acidosis multifactorial -Lactic acidosis -Acute renal failure combination of prerenal and acute tubular necrosis -Thrombocytopenia acute -Acute cardiopulmonary arrest multifactorial Plan: Patient remains to be critically ill. Intubated. On ventilator support. Drips include IV Nimbex, IV bicarbonate, IV Solu-Medrol, IV Levophed, IV Zosyn, IV propofol,. Patient is status post 4 units of blood transfusion. Dr. Buckner did speak to the patient's brother. Overall prognosis appears to be rather poor and if things continue to deteriorate may be appropriate for comfort measures at this point the patient is full code.
--- NOTE | 2017-03-10 15:17 | P.PN ---
Progress Note - Text The patient's hemoglobin increased after packed red blood cells. Much more than expected. She has had only coffee-ground material of the NG which is been scant. No signs of active GI bleeding at this point. Having significant respiratory issues. Overall prognosis is poor
[2017-03-10] MEDS ORDERED: ARTIFICIAL TEARS-HYPROMELLOSE DROPS 15 ML BTL BOTH EYES SCH (16:00)
[2017-03-10 16:24] VITALS: PULSE 0; RESP 0
[2017-03-10] MEDS ORDERED: PANTOPRAZOLE 40 MG/10 ML VIAL IV SCH (21:00)
[2017-03-11] MEDS ORDERED: PANTOPRAZOLE 40 MG/10 ML VIAL IV SCH (09:00)
--- NOTE | 2017-03-11 11:04 | P.DS ---
Providers Date of admission: 03/10/17 06:51 Expected date of discharge: 03/10/17 (Patient ) Attending physician: Gildardo Braxton Consults: 03/10/17 06:51 Consult Physician Stat Consulting Provider: Hansa Gold Consult Reason/Comments: ICU managment Do you want consulting provider notified?: Already Contacted Consult Physician Stat Consulting Provider: Haylie Marie Consult Reason/Comments: GI bleeding Do you want consulting provider notified?: Already Contacted Consult Physician Stat Consulting Provider: Jc Lauren Consult Reason/Comments: GI bleeding Do you want consulting provider notified?: Already Contacted Primary care physician: [facility] Course: This is a 61-year-old patient who is a [facility]. Patient's currently in the ICU intubated. Patient's brother's legal guardian. Patient has the mental age of 2-year-old. Patient is able to ambulate to the bathroom. Occasionally incontinent of urine at night. Needs soft diet due to no dentition. Patient baseline is nonverbal with exception of grunting and agitated easily. Patient presented to the ER with at least 24 hours of nausea vomiting diarrhea. Patient was also reported to have coffee-ground emesis. Patient in the ER was noted to have aspiration pneumonia central line was placed and patient did have hypotension and severe bradycardia had to be intubated. Patient is given fluid boluses. Patient did get epinephrine and CPR. Hemoglobin in the ER was noted to be 2.5 patient did get a total of 4 units of blood. Patient's repeat hemoglobin was much higher. she remained critically ill patient required IV levo fed, was on a ventilator with oxygen of 40% and PEEP of 14, making minimal urine. The patient continued to recommend low, patient also on IV propofol, IV Zosyn, IV Solu-Medrol, and IV Nimbex. Patient continued to do poorly. Dr. Gold spoke to patient's brother who is the power of state attorney. And patient was made terminal wean and patient's subsequent . FINAL diagnosis: Cause of -Acute severe aspiration pneumonitis bilateral Other medical conditions treated: -Acute hypoxic respiratory failure from aspiration pneumonitis probably chemical from gastric contents, requiring intubation and ventilator assistance -chronic developmental delay mental age of 2 -Hiatal hernia -Primary Osteoarthritis multiple joints -Severe hypokalemia from diarrhea -acute gastroenteritis leading to acute GI bleed present on admission -Acute severe metabolic acidosis multifactorial -Lactic acidosis -Acute renal failure combination of prerenal and acute tubular necrosis -Thrombocytopenia acute -Acute cardiopulmonary arrest multifactorial Plan - Discharge Summary New Discharge Prescriptions: No Action QUEtiapine [SEROquel] 150 mg PO BID@1200,1999 clonazePAM [KlonoPIN] 1 mg PO TID@0700,1199,1999 Docusate [Colace] 100 mg PO BID@699,1999 Omeprazole [PriLOSEC] 20 mg PO QAM Atorvastatin [Lipitor] 20 mg PO HS Cholecalciferol (Vitamin D3) [Vitamin D3] 2,000 unit PO QAM DULoxetine HCL [Cymbalta] 60 mg PO QAM Loratadine [Claritin] 10 mg PO QAM QUEtiapine [SEROquel] 50 mg PO QAM@0700 Discharge Medication List Docusate [Colace] 100 mg PO BID@699,199904/10/14 [History] Omeprazole [PriLOSEC] 20 mg PO QAM 04/10/14 [History] QUEtiapine [SEROquel] 150 mg PO BID@1200,199904/10/14 [History] clonazePAM [KlonoPIN] 1 mg PO TID@0700,1199,199904/10/14 [History] Atorvastatin [Lipitor] 20 mg PO HS 03/09/17 [History] Cholecalciferol (Vitamin D3) [Vitamin D3] 2,000 unit PO QAM 03/09/17 [History] DULoxetine HCL [Cymbalta] 60 mg PO QAM 03/09/17 [History] Loratadine [Claritin] 10 mg PO QAM 03/09/17 [History] QUEtiapine [SEROquel] 50 mg PO QAM@0700 03/09/17 [History] Follow up Appointment(s)/Referral(s): Janet Baez DO [Primary Care Provider] - 1-2 days Discharge Disposition: - Preliminary Cause of Preliminary Cause of : Aspiration pneumonia
== END 2017-03-10 19:47 | disposition expired | DRG 208 ==
LOC: EEVIPCON 23:28 → EC 23:28 → 6ICU 03-10 06:51
PROVIDERS: ADMIT Hospitalist; ATTEND Hospitalist
PROC: 5A12012 Performance of Cardiac Output, Single, Manual (ICD-10-PCS; principal; 2017-03-10)
PROC: 5A1935Z Respiratory Ventilation, Less than 24 Consecutive Hours (ICD-10-PCS; 2017-03-10)
PROC: 04HY32Z Insertion of Monitoring Device into Lower Artery, Percutaneous Approach (ICD-10-PCS; 2017-03-10)
PROC: 0D9670Z Drainage of Stomach with Drainage Device, Via Natural or Artificial Opening (ICD-10-PCS; 2017-03-10)
PROC: 30243K1 Transfusion of Nonautologous Frozen Plasma into Central Vein, Percutaneous Approach (ICD-10-PCS; 2017-03-10)
PROC: 30243N1 Transfusion of Nonautologous Red Blood Cells into Central Vein, Percutaneous Approach (ICD-10-PCS; 2017-03-10)
PROC: 06HN33Z Insertion of Infusion Device into Left Femoral Vein, Percutaneous Approach (ICD-10-PCS; 2017-03-10)
PROC: 0BH17EZ Insertion of Endotracheal Airway into Trachea, Via Natural or Artificial Opening (ICD-10-PCS; 2017-03-10)
DX: J69.0 Pneumonitis due to inhalation of food and vomit (principal); N17.0 Acute kidney failure with tubular necrosis; J96.01 Acute respiratory failure with hypoxia; I46.9 Cardiac arrest, cause unspecified; K92.0 Hematemesis; E87.4 Mixed disorder of acid-base balance; E87.2 Acidosis; I95.9 Hypotension, unspecified; K92.2 Gastrointestinal hemorrhage, unspecified; D62 Acute posthemorrhagic anemia; R34 Anuria and oliguria; Z51.5 Encounter for palliative care; Z66 Do not resuscitate; E87.6 Hypokalemia; K29.70 Gastritis, unspecified, without bleeding; R00.1 Bradycardia, unspecified; K59.00 Constipation, unspecified; K21.9 Gastro-esophageal reflux disease without esophagitis; D69.6 Thrombocytopenia, unspecified; K44.9 Diaphragmatic hernia without obstruction or gangrene; E78.5 Hyperlipidemia, unspecified; M19.91 Primary osteoarthritis, unspecified site; F41.9 Anxiety disorder, unspecified; R26.81 Unsteadiness on feet; M21.70 Unequal limb length (acquired), unspecified site; I45.10 Unspecified right bundle-branch block; R00.0 Tachycardia, unspecified; R32 Unspecified urinary incontinence; K08.109 Complete loss of teeth, unspecified cause, unspecified class; K52.9 Noninfective gastroenteritis and colitis, unspecified; R40.2430 Glasgow coma scale score 3-8, unspecified time; F79 Unspecified intellectual disabilities; Z90.49 Acquired absence of other specified parts of digestive tract; Z87.01 Personal history of pneumonia (recurrent); Z79.899 Other long term (current) drug therapy; Z87.19 Personal history of other diseases of the digestive system; Z80.8 Family history of malignant neoplasm of other organs or systems; Z80.0 Family history of malignant neoplasm of digestive organs
CPT/HCPCS: 36415; 36600; 71010; 74177; 80048; 80053; 82272; 82550; 82553; 82805; 83036; 83605; 83735; 84100; 84484; 85025; 85027; 85610; 85730; 86850; 86880; 86900; 86901; 86920; 87040; 93005; 94002; 94640